=== PATIENT | female | born 1955 | race Caucasian/White ===

== ENCOUNTER 2018-07-16 12:21 | Emergency (ER) | payer BC ==
--- OUTSIDE RECORDS SUMMARY | 2018-07-16 12:47 | XMS REPORT | Continuity of Care Document ---
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 Onset: 2011 Tobacco user Nae Wesley, N.P. Onset: 2011 Anxiety state Nae Wesley, N.PTrinh Onset: 2011 Disturbance in sleep behavior Amalia Lynne MD Onset: 06/02/2014 Malaise and fatigue Amalia Lynne MD Onset: 06/02/2014 Obstructive sleep apnea syndrome Amalia Lynne MD Onset: 07/05/2014 Lumbosacral radiculopathy Faviola Ibanez M.D. Onset: 12/07/2016 Note: left L5/S1 Dyspnea William Lombardo M.D., LAUREN, RICARDO Onset: 01/29/2017 Thoracic aortic ectasia William Lombardo M.D., JUANRICARDO Onset: 01/29/2017 Family History Date Family Member(s) Observation Comments General MGM ?cancer;MGF from complications from accident : (age Father due to Cardiac Atrial Fibrillation 79 Years) Aortic Aneurysm Onset: (age 79 Father Aortic Aneurysm HTN, CAD from Years) AAA Mother CAD Pacemaker, Atrial Fibrillation, Thyroid Cancer, Breast Cancer (60's), Uterine Cancer (70's), Dementia, Dies of a stroke age 90 Siblings 2 1 Brother - CAD - enlarged aorta age 72 1 Sister - CAD - benign tumor of heart Age 70 Social History Type Date Description Comments Sex Unknown Marital Status 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 Device 10: g47.33 (occasionally) Compression knee high stockings 2units Nae Wesley, 04/05/2017 Stockings 20 - 30 mm N.P. Misc Simvastatin Take One Tablet By 30tabs Nae Wesley, 05/24/2016 10mg Mouth AT Bedtime N.P. Tablets Azithromycin take 1 tablet 30 - 4tabs Nae Wesley, 02/06/2012 500mg 60 minutes bfore N.P. Tablets dental appointment Sertraline HCL Take One Tablet By 30tabs Nae Wesley, 12/07/2011 50mg Mouth Every Day N.P. Tablets Caltrate 600+D Plus 1 po bid Unknown [id number] Tablets History Medications Levaquin 1 by mouth daily 10tabs J20.9 Nae Wesley, 12/13/2017 - 500mg Tablets for 10 days N.P. 12/23/2017 Tylenol With Codeine 1 tablet by mouth 30tabs J20.9 Nae Wesley, 2017 - #3 every 8 hours as N.P. 12/27/2017 300-30mg Tablets needed cough Ventolin HFA 1 to 2 18units J20.9 Nae Maryjane, 12/13/2017 - inhalations every N.P. 12/27/2017 108(90Base) mcg/Act 4 hours as needed Aerosol Prednisone 4 tablets by 40tabs Nae Wesley, 12/10/2017 - 10mg Tablets mouth for 4 days N.P. 12/26/2017 3 tablets by mouth for 4 days 2 tablets by mouth for 4 days 1 tablet by mouth for 4 days Fluticasone 2 sprays each 16units J01.90 Nae Wesley, 12/05/2017 - Propionate nostril daily as N.P. 12/19/2017 50mcg/Act needed Suspension Benzonatate one by mouth 30caps J01.90 Nae Maryjane, 12/05/2017 - 200mg three times daily N.P. 12/19/2017 Capsules as needed for cough Azithromycin two tabs day one, 6tabs J01.90 Nae Wesley, 12/05/2017 - 250mg one daily till N.P. 12/13/2017 Tablets gone Gabapentin ( Not Taking) 1 30caps M54.17 Nae Maryjane, 05/27/2017 - 300mg by mouth at N.P. 04/24/2018 Capsules bedtime Medrol 6 by mouth day 1, 21units M54.16 Faviola Ibanez, 12/07/2016 - 4mg TBPK 5 by mouth day 2, M.D. 01/17/2017 4 by mouth day 3, 3 by mouth day 4, 2 by mouth day 5, 1 by mouth day 6 Cyclobenzaprine HCL take 1 by mouth 42tabs M54.16 Faviola Ibanez, 2016 - 5mg every 8 hours, M.D. 05/27/2017 Tablets prn muscle spasm. Prednisone 4 tablets by 40tabs Nae Wesley, 08/25/2015 - 10mg Tablets mouth for 4 days N.P. 09/10/2015 3 tablets by mouth for 4 days 2 tablets by mouth for 4 days 1 tablet by mouth for 4 days Flovent HFA 2 puffs twice 1month 466.0 Nae Wesley, 08/25/2015 - 110mcg/Act daily N.P. 09/24/2015 Aerosol Azithromycin two tabs day one, 6tabs J01.10 Nae Wesley, 08/18/2015 - 250mg one daily till N.P. 08/28/2015 Tablets gone Fluticasone 2 sprays each 16units J01.10 Nae Wesley, 08/18/2015 - Propionate nostril daily as N.P. 08/28/2015 50mcg/Act needed Suspension Nasonex two sprays each 17gm 465.9 Barber Weinstein NP 09/24/2014 - 50mcg/Act nostril once 01/18/2015 Suspension daily prn Azithromycin 2 tabs by mouth 6tabs 381.01 Babrer Weinstein NP 09/24/2014 - 250mg every day x1 day, 09/29/2014 Tablets 1 tab by mouth every day x 4 days Tobrex 1 drop every 4 5ml 372.00 Nae Wesley, 10/12/2013 - 0.3% Solution hours for 7 days N.P. 10/19/2013 Meclizine HCL 1 tablet daily as 30tabs 386.11 Nae Wesley, 06/23/2013 - 25mg needed N.P. 05/19/2014 Tablets Azithromycin two tabs day one, 6tabs 382.9 Nae Wesley, 04/24/2013 - 250mg one daily till N.P. 05/04/2013 Tablets gone Azithromycin two tabs day one, 6tabs Nae Wesley, 12/10/2012 - 250mg one daily till N.P. 12/20/2012 Tablets gone Cyclobenzaprine HCL 1 by mouth at 30tabs 723.1 Nae Wesley, 11/28/2012 - 5mg bedtime as needed N.P. 02/13/2013 Tablets for back pain Oxycodone/Acetaminoph 1-2 tabs po q 4 724.5 Chris Jeter 10/22/2012 - en hrs prn pain Taj Wan 10/22/2012 5-325mg Tablets Oxycodone/Acetaminoph 1 tablet every 6 90tabs 724.5 Chris Jeter 02/18/2012 - en hours as needed Taj Wan 10/22/2012 7.5-500mg Tablets for pain Lidoderm apply to affected 30units 724.5 Nae Wesley, 02/18/2012 - 5% Patches area for 12 hrs, N.P. 11/27/2012 remove for 12 hrs and repeat prn Tobramycin Sulfate 2 gtts in each 5ml 372.00 Nae Maryjane, 01/08/2012 - 0.3% eye every 4 hours N.P. 02/18/2012 Solution while awake for 10 days Prednisone as directed 40tabs 466.0 Nae Maryjane, 12/14/2011 - 5mg Tablets N.P. 12/30/2011 Flovent HFA 2 puffs twice 1month 466.0 Nae Odellliliam, 12/14/2011 - 110mcg/Act daily N.P. 01/13/2012 Aerosol Ventolin HFA 1 to 2 1inhaler 466.0 Nae Odellliliam, 12/14/2011 - inhalations every N.P. 01/13/2012 108(90Base) mcg/ac 4 hours as needed Aerosol Robitussin ac 1 - 2 tsp q 4 hrs 120cc 466.0 Nae Maryjane, 12/14/2011 - prn cough N.P. 12/28/2011 Azithromycin two tabs day one, 6tabs 382.9 Nae Maryjane, 12/07/2011 - 250mg one daily till N.P. 12/14/2011 Tablets gone Escitalopram Oxalate 1 po qd 30tabs 300.00 Nae Maryjane, 12/07/2011 - N.P. 12/07/2011 10mg Tablets Paroxetine HCL 1 po qd 30tabs 300.00 Simran 2011 - 20mg Taj Wild 01/08/2012 Tablets Left Shoe/Boot Size Sprained left 5th 845.13 Simran 2010 - Small/Medium metatarsal Taj Wild 08/04/2010 Aspir-81 1 po qd (Not 100tabs Unknown - 81mg Tablets Taking) 04/24/2018 DR Oakes 1 po qd Unknown - Chondroitin 1500 01/18/2015 Complex 1500Com Capsules Nicoderm CQ once daily Unknown - 21mg/24HR 10/22/2012 Patches 24HR Hydrocodone/Acetamino 1-2 po qid prn 20tabs Unknown - phen 02/13/2013 5-325mg Tablets Cyclobenzaprine HCL one po tid prn 30tabs Chris Jeter - spasm Taj Wan 10/22/2012 10mg Tablets Colace 1 po bid 60caps Unknown - 100mg Capsules 11/17/2012 Famotidine 1 po qd 30tabs Unknown - 40mg Tablets 11/17/2012 Ferrous Gluconate 1 po bid 60tabs Unknown - 11/27/2012 324(37.5Fe) mg Tablets Metoprolol Tartrate 1 po bid 60tabs Unknown - 02/13/2013 25mg Tablets Medications Administered in Office Medication SIG Qnty Indications Ordering Provider Date Technetium TC 99M William Lombardo M.D., 01/21/2017 Tetrofosmin, Per Unit Dose RICARDO AGUILAR Up To 40 Millicuries Injection Technetium TC 99M Clyde Quiroga M.D. 01/21/2015 Tetrofosmin, Per Unit Dose Up To 40 Millicuries Injection Technetium TC 99M BENIGNO Hamm 01/21/2015 Tetrofosmin, Per Unit Dose Up To 40 Millicuries Injection Immunizations CPT Code Status Date Vaccine Lot # [id number] Given 12/10/2008 Tdap - Tetanus/Diptheria/Acellular Pertussis Vital Signs Date Vital Result Comment 06/16/2018 1:45pm Height 61.25 inches 5'1.25" Weight 152.00 lb Heart Rate 69 /min BP Systolic 120 mmHg BP Diastolic 75 mmHg Body Temperature 98.3 F O2 % BldC Oximetry 98 % BMI (Body Mass Index) 28.5 kg/m2 04/25/2018 8:46am Height 61.25 inches 5'1.25" Weight 158.00 lb Heart Rate 68 /min BP Systolic Sitting 108 mmHg lue reg cuff BP Diastolic Sitting 70 mmHg lue reg cuff BP Systolic Standing 110 mmHg lue reg cuff BP Diastolic Standing 70 mmHg lue reg cuff Respiratory Rate 14 /min BMI (Body Mass Index) 29.6 kg/m2 Ejection Fraction 60-65% echo. 04/14/18 12/13/2017 11:38am Height 61.25 inches 5'1.25" Weight 158.00 lb Heart Rate 73 /min BP Systolic 130 mmHg BP Diastolic 80 mmHg Body Temperature 98.6 F O2 % BldC Oximetry 95 % BMI (Body Mass Index) 29.6 kg/m2 12/05/2017 9:54am Height 61.25 inches 5'1.25" Weight 159.00 lb Heart Rate 83 /min BP Systolic 100 mmHg BP Diastolic 66 mmHg Body Temperature 98.5 F O2 % BldC Oximetry 97 % BMI (Body Mass Index) 29.8 kg/m2 05/27/2017 9:28am Height 61.25 inches 5'1.25" Weight 174.50 lb Heart Rate 70 /min BP Systolic 124 mmHg BP Diastolic 80 mmHg Body Temperature 98.2 F O2 % BldC Oximetry 96 % BMI (Body Mass Index) 32.7 kg/m2 01/29/2017 3:01pm Height 60.75 inches 5'0.75" Weight 166.00 lb No shoes Heart Rate 80 /min BP Systolic Sitting 118 mmHg Lue reg cuff BP Diastolic Sitting 76 mmHg Lue reg cuff BP Systolic Standing 122 mmHg Lue reg cuff BP Diastolic Standing 82 mmHg Lue reg cuff Respiratory Rate 16 /min BMI (Body Mass Index) 31.6 kg/m2 Ejection Fraction 60-65% 01/28/2017-echo 01/17/2017 3:52pm Weight 163.44 lb Heart Rate 71 /min BP Systolic Sitting 110 mmHg BP Diastolic Sitting 70 mmHg O2 % BldC Oximetry 95 % 12/07/2016 9:51am Height 60.75 inches 5'0.75" Weight 161.00 lb Heart Rate 72 /min BP Systolic Sitting 110 mmHg BP Diastolic Sitting 68 mmHg Respiratory Rate 16 /min BMI (Body Mass Index) 30.7 kg/m2 08/31/2016 9:57am Height 60.75 inches 5'0.75" Weight 161.00 lb Heart Rate 68 /min BP Systolic Sitting 112 mmHg BP Diastolic Sitting 70 mmHg Respiratory Rate 14 /min BMI (Body Mass Index) 30.7 kg/m2 05/23/2016 8:49am Height 60.75 inches 5'0.75" Weight 164.25 lb Heart Rate 78 /min BP Systolic 130 mmHg BP Diastolic 84 mmHg Body Temperature 98.5 F O2 % BldC Oximetry 99 % BMI (Body Mass Index) 31.3 kg/m2 03/21/2016 10:00am Height 61 inches 5'1" Weight 160.00 lb Heart Rate 68 /min BP Systolic Sitting 132 mmHg BP Diastolic Sitting 72 mmHg Respiratory Rate 14 /min O2 % BldC Oximetry 98 % BMI (Body Mass Index) 30.2 kg/m2 02/14/2016 10:59am Height 61 inches 5'1" Weight 161.00 lb w/o shoes Heart Rate 60 /min BP Systolic Sitting 130 mmHg Rue, reg cuff BP Diastolic Sitting 80 mmHg Rue, reg cuff BP Systolic Standing 126 mmHg Rue BP Diastolic Standing 84 mmHg Rue Respiratory Rate 16 /min BMI (Body Mass Index) 30.4 kg/m2 Ejection Fraction 60-65% as of 01/30/16 echo 12/02/2015 2:31pm Weight 162.00 lb Heart Rate 68 /min BP Systolic Sitting 124 mmHg BP Diastolic Sitting 80 mmHg Respiratory Rate 15 /min Body Temperature 98.3 F O2 % BldC Oximetry 98 % 08/18/2015 11:02am Weight 162.00 lb Heart Rate 78 /min BP Systolic Sitting 120 mmHg BP Diastolic Sitting 76 mmHg Body Temperature 97.8 F O2 % BldC Oximetry 98 % 08/08/2015 4:43pm Weight 163.00 lb Heart Rate 70 /min BP Systolic Sitting 126 mmHg BP Diastolic Sitting 70 mmHg Body Temperature 98.8 F O2 % BldC Oximetry 97 % 05/23/2015 9:15am Height 61.25 inches 5'1.25" Weight 165.00 lb Heart Rate 66 /min BP Systolic Sitting 118 mmHg BP Diastolic Sitting 78 mmHg Respiratory Rate 15 /min Body Temperature 98.2 F O2 % BldC Oximetry 98 % BMI (Body Mass Index) 30.9 kg/m2 03/16/2015 10:53am Height 61.25 inches 5'1.25" Weight 165.00 lb Heart Rate 70 /min BP Systolic 100 mmHg BP Diastolic 68 mmHg Respiratory Rate 14 /min O2 % BldC Oximetry 98 % BMI (Body Mass Index) 30.9 kg/m2 01/25/2015 1:59pm Height 61.25 inches 5'1.25" Weight 166.00 lb Heart Rate 60 /min BP Systolic Sitting 112 mmHg Ra reg cuff BP Diastolic Sitting 78 mmHg Ra reg cuff BP Systolic Standing 108 mmHg Ra BP Diastolic Standing 74 mmHg Ra Respiratory Rate 16 /min BMI (Body Mass Index) 31.1 kg/m2 Ejection Fraction 60-65% 12/28/14 01/05/2015 8:24am Height 61.25 inches 5'1.25" Weight 165.00 lb w/o shoes Heart Rate 68 /min reg BP Systolic Sitting 108 mmHg Rue, reg cuff BP Diastolic Sitting 70 mmHg Rue, reg cuff BP Systolic Standing 110 mmHg Rue BP Diastolic Standing 76 mmHg Rue Respiratory Rate 18 /min BMI (Body Mass Index) 30.9 kg/m2 Ejection Fraction 60-65% as of 12/28/14 echo 09/24/2014 10:47am Heart Rate 62 /min BP Systolic Sitting 117 mmHg BP Diastolic Sitting 77 mmHg Body Temperature 97.2 F 09/13/2014 1:41pm Height 61 inches 5'1" Weight 160.00 lb Heart Rate 72 /min BP Systolic 118 mmHg BP Diastolic 68 mmHg Respiratory Rate 12 /min O2 % BldC Oximetry 97 % BMI (Body Mass Index) 30.2 kg/m2 07/05/2014 9:31am Height 61 inches 5'1" Weight 160.00 lb Heart Rate 72 /min BP Systolic Sitting 124 mmHg BP Diastolic Sitting 64 mmHg O2 % BldC Oximetry 97 % BMI (Body Mass Index) 30.2 kg/m2 06/02/2014 8:38am Height 61 inches 5'1" Weight 160.50 lb Heart Rate 71 /min BP Systolic Sitting 124 mmHg BP Diastolic Sitting 68 mmHg Respiratory Rate 18 /min O2 % BldC Oximetry 98 % BMI (Body Mass Index) 30.3 kg/m2 Neck Circumference in inches 14.5 05/19/2014 10:41am Height 61.25 inches 5'1.25" Weight 160.00 lb Heart Rate 66 /min BP Systolic 131 mmHg BP Diastolic 76 mmHg Body Temperature 99.3 F BMI (Body Mass Index) 30.0 kg/m2 12/23/2013 10:34am Height 61.25 inches 5'1.25" Weight 164.25 lb Heart Rate 66 /min reg BP Systolic Sitting 120 mmHg LA reg cuff BP Diastolic Sitting 80 mmHg LA reg cuff BP Systolic Standing 108 mmHg LA reg cuff BP Diastolic Standing 80 mmHg LA reg cuff BMI (Body Mass Index) 30.8 kg/m2 10/12/2013 11:23am Height 61.25 inches 5'1.25" Weight 164.50 lb Heart Rate 74 /min BP Systolic Sitting 116 mmHg BP Diastolic Sitting 64 mmHg Body Temperature 98.0 F BMI (Body Mass Index) 30.8 kg/m2 06/23/2013 2:46pm Weight 164.50 lb Heart Rate 78 /min BP Systolic Sitting 118 mmHg BP Diastolic Sitting 64 mmHg Body Temperature 97.7 F 04/24/2013 4:24pm Weight 161.50 lb Heart Rate 84 /min BP Systolic 136 mmHg BP Diastolic 82 mmHg Respiratory Rate 18 /min Body Temperature 98.2 F 02/13/2013 8:54am Weight 159.50 lb Heart Rate 72 /min BP Systolic Sitting 120 mmHg BP Diastolic Sitting 76 mmHg 11/28/2012 8:54am Weight 150.00 lb Heart Rate 64 /min BP Systolic Sitting 120 mmHg BP Diastolic Sitting 70 mmHg 11/27/2012 9:21am Height 61.25 inches 5'1.25" Weight 150.00 lb without shoes Heart Rate 6260 /min sit and stand HR reg BP Systolic Sitting 110 mmHg L arm reg cuff BP Diastolic Sitting 80 mmHg L arm reg cuff BP Systolic Standing 108 mmHg L arm reg cuff BP Diastolic Standing 80 mmHg L arm reg cuff Respiratory Rate 16 /min BMI (Body Mass Index) 28.1 kg/m2 10/22/2012 1:18pm Weight 148.00 lb Heart Rate 72 /min BP Systolic Sitting 112 mmHg BP Diastolic Sitting 70 mmHg 06/13/2012 8:56am Weight 156.00 lb Heart Rate 74 /min BP Systolic Sitting 122 mmHg BP Diastolic Sitting 76 mmHg 02/18/2012 3:15pm Height 61 inches 5'1" Weight 150.00 lb Heart Rate 72 /min BP Systolic 124 mmHg BP Diastolic 78 mmHg Respiratory Rate 16 /min BMI (Body Mass Index) 28.3 kg/m2 01/08/2012 8:39am Height 61 inches 5'1" Weight 150.00 lb Heart Rate 64 /min BP Systolic Sitting 118 mmHg BP Diastolic Sitting 82 mmHg BMI (Body Mass Index) 28.3 kg/m2 12/14/2011 8:57am Height 61 inches 5'1" Weight 151.00 lb Heart Rate 72 /min BP Systolic Sitting 118 mmHg BP Diastolic Sitting 66 mmHg Body Temperature 99.1 F BMI (Body Mass Index) 28.5 kg/m2 12/07/2011 10:15am Height 61 inches 5'1" Weight 152.00 lb Heart Rate 70 /min BP Systolic Sitting 122 mmHg BP Diastolic Sitting 70 mmHg Body Temperature 99.2 F BMI (Body Mass Index) 28.7 kg/m2 09/03/2011 11:14am Height 61 inches 5'1" Weight 150.00 lb Heart Rate 72 /min BP Systolic Sitting 112 mmHg BP Diastolic Sitting 66 mmHg BMI (Body Mass Index) 28.3 kg/m2 2011 9:14am Height 61 inches 5'1" Weight 150.00 lb Heart Rate 64 /min BP Systolic Sitting 112 mmHg BP Diastolic Sitting 70 mmHg BMI (Body Mass Index) 28.3 kg/m2 2010 10:14am Height 61 inches 5'1" Weight 149.00 lb Heart Rate 68 /min BP Systolic 120 mmHg BP Diastolic 78 mmHg BMI (Body Mass Index) 28.2 kg/m2 Results Test Date Facility Test Result H/L Range Note Laboratory test 05/27/2017 [facility] Cytology SEE RESULT [address] [place] [address] [phone] Comp Metabolic 05/13/2017 [facility] Sodium 138 mmol/L N 133- [address] [place] [address] [phone] Potassium 4.6 mmol/L N 3.5-5.0 Chloride 104 mmol/L N 101-111 Co2 Carbon Dioxide 28 mmol/L N 22-32 Anion Gap 6 mmol/L N 2-11 Glucose 104 mg/dL High 70-100 Blood Urea Nitrogen 20 mg/dL N 6-24 Creatinine 0.86 mg/dL N 0.51-0.95 BUN/Creatinine Ratio 23.3 High 8-20 Calcium 9.9 mg/dL N 8.6-10.3 Total Protein 6.7 g/dL N 6.4-8.9 Albumin 4.4 g/dL N 3.2-5.2 Globulin 2.3 g/dL N 2-4 Albumin/Globulin Ratio 1.9 N 1-3 Total Bilirubin 0.30 mg/dL N 0.2-1.0 Alkaline Phosphatase 70 U/L N 34-104 Alt 30 U/L N 7-52 Ast 25 U/L N 13-39 Egfr Non- 67.5 >60 Egfr 86.9 >60 2 Lipid Profile 05/13/2017 [facility] Triglycerides 102 mg/dL 3 (Trig/Chol/HDL) [address] [place] [address] [phone] Cholesterol 176 mg/dL 4 HDL Cholesterol 65.2 mg/dL 5 LDL Cholesterol 90 mg/dL 6 Lipid Profile 07/19/2016 [facility] Triglycerides 85 mg/dL N 7 (Trig/Chol/HDL) [address] [place] [address] [phone] Cholesterol 162 mg/dL N 8 HDL Cholesterol 62.4 mg/dL N 9 LDL Cholesterol 83 mg/dL N 10 Liver Function 07/19/2016 [facility] Total Protein 6.7 g/dL N 6.4-8.[address] [place] [address] [phone] Albumin 4.3 g/dL N 3.2-5.2 Globulin 2.4 g/dL N 2-4 Albumin/Globulin Ratio 1.8 N 1-3 Total Bilirubin 0.40 mg/dL N 0.2-1.0 Direct Bilirubin 0.10 mg/dL N 0.03-0.18 Indirect Bilirubin 0.3 mg/dL N 0.3-1.0 Alkaline Phosphatase 64 U/L N 34-104 Alt 35 U/L N 7-52 Ast 26 U/L N 13-39 Laboratory test 05/15/2016 [facility] Vitamin D 40.7 ng/mL N 30-[address] Total 25(Oh) [place] [address] [phone] Comp Metabolic 05/15/2016 [facility] Sodium 137 mmol/L N 133- [address] [place] [address] [phone] Potassium 4.2 mmol/L N 3.5-5.0 Chloride 104 mmol/L N 101-111 Co2 Carbon Dioxide 26 mmol/L N 22-32 Anion Gap 7 mmol/L N 2-11 Glucose 103 mg/dL High 70-100 Blood Urea Nitrogen 18 mg/dL N 6-24 Creatinine 0.72 mg/dL N 0.51-0.95 BUN/Creatinine Ratio 25.0 High 8-20 Calcium 9.6 mg/dL N 8.6-10.3 Total Protein 6.9 g/dL N 6.4-8.9 Albumin 4.4 g/dL N 3.2-5.2 Globulin 2.5 g/dL N 2-4 Albumin/Globulin Ratio 1.8 N 1-3 Total Bilirubin 0.50 mg/dL N 0.2-1.0 Alkaline Phosphatase 70 U/L N 34-104 Alt 32 U/L N 7-52 Ast 20 U/L N 13-39 Egfr Non- 83.2 N >60 Egfr 107.0 N >60 12 Lipid Profile 05/15/2016 [facility] Triglycerides 131 mg/dL N 13 (Trig/Chol/HDL) [address] [place] [address] [phone] Cholesterol 232 mg/dL N 14 HDL Cholesterol 75.3 mg/dL N 15 LDL Cholesterol 131 mg/dL N 16 Lipid Profile 05/31/2015 [facility] Triglycerides 148 mg/dL N 17 (Trig/Chol/HDL) [address] [place] [address] [phone] Cholesterol 218 mg/dL N 18 HDL Cholesterol 56.5 mg/dL N 19 LDL Cholesterol 132 mg/dL N 20 Comp Metabolic Panel 05/31/2015 [facility] Sodium 139 mmol/L N 133-[address] [place] [address] [phone] Potassium 4.2 mmol/L N 3.5-5.0 Chloride 105 mmol/L N 101-111 Co2 Carbon Dioxide 26 mmol/L N 22-32 Anion Gap 8 mmol/L N 2-11 Glucose 93 mg/dL N 70-100 Blood Urea Nitrogen 13 mg/dL N 6-24 Creatinine 0.73 mg/dL N 0.51-0.95 BUN/Creatinine Ratio 17.8 N 8-20 Calcium 9.6 mg/dL N 8.6-10.3 Total Protein 6.7 g/dL N 6.4-8.9 Albumin 4.4 g/dL N 3.2-5.2 Globulin 2.3 g/dL N 2-4 Albumin/Globulin Ratio 1.9 N 1-3 Total Bilirubin 0.50 mg/dL N 0.2-1.0 Alkaline Phosphatase 64 U/L N 34-104 Alt 28 U/L N 7-52 Ast 20 U/L N 13-39 Egfr Non- 82.2 N >60 Egfr 105.7 N >60 21 Laboratory test 05/19/2014 [facility] Cytology RUN DATE: finding [address] <SEE NOTE> [place] [address] [phone] HPV Rna W/ Reflex Genotype Negative N Negative 23 Lipid Profile 04/29/2014 [facility] Triglycerides 90 mg/dL N 24, 25 (Trig/Chol/HDL) [address] [place] [address] [phone] Cholesterol 199 mg/dL N 26 HDL Cholesterol 57.8 mg/dL N 27 LDL Cholesterol 123 mg/dL N 28 Comp Metabolic Panel 04/29/2014 [facility] Sodium 139 mmol/L N 133-145 [address] [place] [address] [phone] Potassium 4.5 mmol/L N 3.5-5.0 Chloride 105 mmol/L N 101-111 Co2 Carbon Dioxide 30 mmol/L N 22-32 Anion Gap 4 mmol/L N 2-11 Glucose 89 mg/dL N 70-100 Blood Urea Nitrogen 15 mg/dL N 6-24 Creatinine 0.77 mg/dL N 0.51-0.95 BUN/Creatinine Ratio 19.5 N 8-20 Calcium 9.5 mg/dL N 8.6-10.3 Total Protein 6.5 g/dL N 6.4-8.9 Albumin 4.3 g/dL N 3.2-5.2 Globulin 2.2 g/dL N 2-4 Albumin/Globulin Ratio 2.0 N 1-3 Total Bilirubin 0.40 mg/dL N 0.2-1.0 Alkaline Phosphatase 54 U/L N 34-104 Alt 19 U/L N 7-52 Ast 16 U/L N 13-39 Egfr Non- 77.5 N >60 Egfr 99.7 N >60 29 Inr/Protime 08/02/2012 [facility] Inr 0.96 0.87-0.97 [address] [place] [address] [phone] CBC Auto Diff 08/02/2012 [facility] White Blood 10.4 4.8- 10.[address] Count 10^3/[place] [address] [phone] Red Blood Count 4.57 10^6/uL 4.0-5.4 Hemoglobin 14.3 g/dL 12.0-16.0 Hematocrit 42 % 35-47 Mean Corpuscular Volume 93 fL 80-97 Mean Corpuscular Hemoglobin 31 pg 27-31 Mean Corpuscular HGB Conc 34 g/dL 31-36 Red Cell Distribution Width 14 % 10.5-15 Platelet Count 248 10^3/uL 150-450 Mean Platelet Volume 9 um3 7.4-10.4 Abs Neutrophils 7.5 10^3/uL 1.5-7.7 Abs Lymphocytes 2.1 10^3/uL 1.0-4.8 Abs Monocytes 0.8 10^3/uL 0-0.8 Abs Eosinophils 0.1 10^3/uL 0-0.6 Abs Basophils 0 10^3/uL 0-0.2 Abs Nucleated RBC 0.01 10^3/uL Granulocyte % 71.9 % 38-83 Lymphocyte % 19.8 % Low 25-47 Monocyte % 7.4 % 1-9 Eosinophil % 0.5 % 0-6 Basophil % 0.4 % 0-2 Nucleated Red Blood Cells % 0.1 Laboratory 08/02/2012 [facility] Activated 37.2 High 22.18- 37.18 test finding [address] [place] [address] Thrombo Time [phone] Comp Metabolic 08/02/2012 [facility] Sodium 137 mmol/L 133- [address] [place] [address] [phone] Potassium 5.3 mmol/L High 3.5-5.0 Chloride 105 mmol/L 101-111 Co2 Carbon Dioxide 23.0 mmol/L 22-32 Anion Gap 9.0 mmol/L 2-11 Glucose 83 mg/dL 70-100 Blood Urea Nitrogen 11 mg/dL 6-24 Creatinine 0.70 mg/dL 0.50-1.40 BUN/Creatinine Ratio 15.7 8-20 Calcium 9.8 mg/dL 8.1-9.9 Total Protein 6.6 g/dL 6.2-8.1 Albumin 4.7 g/dL 3.6-5.4 Globulin 1.9 g/dL Low 2-4 Albumin/Globulin Ratio 2.5 1-3 Total Bilirubin 1.4 mg/dL 0.4-1.5 Alkaline Phosphatase 58 U/L 30-110 Alt 32 U/L 14-54 Ast 41 U/L 12-42 Egfr Non- 87.2 >60 Egfr 112.1 >60 30 CKMB 08/02/2012 [facility] CKMB ng/mL 2.2 ng/mL 0.3-4.0 31 [address] [place] [address] [phone] Laboratory test 08/02/2012 [facility] Troponin I 0 ng/mL 0- 0.06 32 finding [address] [place] [address] [phone] Laboratory test 03/14/2012 [facility] Inr 0.96 0.82-1.[address] [place] [address] [phone] Activated Partial Thrombo Time 33.6 sec 22.18-37.18 34 Type & Screen 03/14/2012 [facility] Patient Blood Type A Negative [address] [place] [address] [phone] Antibody Screen NEGATIVE Basic Metabolic Panel 03/14/2012 [facility] Sodium 138 mmol/L 133-[address] [place] [phone] Potassium 4.1 mmol/L 3.5-5.0 Chloride 102 mmol/L 101-111 Co2 Carbon Dioxide 29.0 mmol/L 22-32 Anion Gap 7.0 mmol/L 2-11 Glucose 85 mg/dL 70-100 Blood Urea Nitrogen 8 mg/dL 6-24 Creatinine 0.60 mg/dL 0.50-1.40 BUN/Creatinine Ratio 13.3 8-20 Calcium 10.2 mg/dL High 8.1-9.9 Egfr Non- 104.2 >60 Egfr 134.0 >60 35 CBC Auto Diff 03/14/2012 [facility] White Blood 6.3 10^3/uL 4.8-10.8 [address] [facility] [place] [address] [phone] Red Blood Count 4.56 10^6/uL 4.0-5.4 Hemoglobin 14.5 g/dL 12.0-16.0 Hematocrit 42 % 35-47 Mean Corpuscular Volume 93 fL 80-97 Mean Corpuscular Hemoglobin 32 pg High 27-31 Mean Corpuscular HGB Conc 34 g/dL 31-36 Red Cell Distribution Width 13 % 10.5-15 Platelet Count 291 10^3/uL 150-450 Mean Platelet Volume 8 um3 7.4-10.4 Abs Neutrophils 3.7 10^3/uL 1.5-7.7 Abs Lymphocytes 1.9 10^3/uL 1.0-4.8 Abs Monocytes 0.5 10^3/uL 0-0.8 Abs Eosinophils 0.1 10^3/uL 0-0.6 Abs Basophils 0.1 10^3/uL 0-0.2 Abs Nucleated RBC 0 10^3/uL Granulocyte % 58.7 % 38-83 Lymphocyte % 30.8 % 25-47 Monocyte % 8.5 % 1-9 Eosinophil % 1.1 % 0-6 Basophil % 0.9 % 0-2 Nucleated Red Blood Cells % 0 Laboratory test 08/06/2011 [facility] TSH 1.03 MIU/ML 0.34- 5.60 finding [address] [place] [address] [phone] Comp Metabolic 08/06/2011 [facility] Sodium 136 mmol/L 135- 145 Panel [address] [place] [address] [phone] Potassium 4.3 mmol/L 3.5-5.0 Chloride 104 mmol/L 101-111 Co2 (Carbon Dioxide) 28.0 mmol/L 22-32 Anion Gap 4.0 mmol/L 2-11 36 Glucose 99 mg/dL 70-100 BUN 11 mg/dL 6-24 Creatinine 0.8 mg/dL 0.50-1.40 One Over Creatinine 1.25 BUN/Creatinine Ratio 13.8 8-20 Calcium 9.2 mg/dL 8.1-9.9 Total Protein 6.4 GM/DL 6.2-8.1 Albumin 4.2 GM/DL 3.6-5.4 Globulin 2.2 GM/DL 2-4 Albumin/Globulin Ratio 1.9 1-3 Bilirubin Total 0.7 mg/dL 0.4-1.5 37 Alkaline Phosphatase 60 U/L 30-110 Alt (SGPT) 29 U/L 14-54 Ast (Sgot) 24 U/L 12-42 eGFR Non- 74.7 > 60 eGFR 96.1 > 60 38 Lipid Profile 08/06/2011 [facility] Triglyceride 45 mg/dL 40- 200 (Trig/Chol/HDL) [address] [place] [address] [phone] Cholesterol 197 mg/dL Less Than 200 39 High Density Lipoprotein 75 mg/dL High 40-60 40 Cholesterol/HDL Ratio 2.63 AVERAGE 1-4.44 Low Density Lipoprotein 113 mg/dL High Less Than 100 41 Laboratory test 2011 [facility] Cytology [address] <SEE NOTE> [place] [address] [phone] CBC No Diff 09/20/2010 [facility] White Blood 6.7 CUMM 4.8- [address] Count 10.8 [place] [address] [phone] Red Cell Count 4.37 CUMM 4.2-5.4 Hemoglobin 14.3 g/dL 12.0-16.0 Hematocrit 41 % 35-47 Mean Corpuscular Volume 94 um3 79-97 Mean Corpuscular Hemoglob 33 pg High 27-31 Mean Corpuscular HGB Cone 35 g/dL 32-36 Redcell Distribution WDTH 13 % 10.5-15 Platelet Count 260 CUMM 150-450 Mean Platelet Volume 9.4 um3 7.4-10.4 Basic Metabolic Panel 09/20/2010 [facility] Sodium 142 mmol/L 135-[address] [place] [address] [phone] Potassium 4.7 mmol/L 3.5-5.0 Chloride 106 mmol/L 101-111 Co2 (Carbon Dioxide) 29.0 mmol/L 22-32 Anion Gap 7.0 mmol/L 2-11 43 Glucose 89 mg/dL 70-100 BUN 8 mg/dL 6-24 Creatinine 0.70 mg/dL 0.50-1.40 One Over Creatinine 1.40 BUN/Creatinine Ratio 11.4 8-20 Calcium 9.8 mg/dL 8.1-9.9 eGFR Non- 87.5 > 60 eGFR 112.6 > 60 44 Laboratory test 09/20/2010 [facility] Magnesium 2.2 mg/dL 1.7 -2.[address] [place] [address] [phone] TSH 0.95 MIU/ML 0.34-5.60 1 SEE RESULT BELOW Name: NOLAN PEOPLES : [address]: Nae Wesley NP Acct: [id number] Unit: [id number] AGE: 61 Location: [facility] Re05/27/17 SEX: F Status: REG REF SPEC: LOYDA: 05/27/17 [facility] [address]: Nae Wesley NP REQ: [id number] RECD: 05/27/17 STATUS: SOUT _ ORDERED: TP IMAGE ANAL, HPV/Thin Prep, HPV 16/18 GENE COMMENTS: [id number] Negative for Intraepithelial lesion or Malignancy A. Ectocervical/Endocervical Specimen Adequacy: Satisfactory of evaluation Transformation zone component cannot be definitely identified due to presence of atrophy or other hormonal changes Predominance of white blood cells Scanty epithelial component Patient Information: HPV: High risk HPV RNA testing regardless of pap results. HPV 16/18 Genotype Reflex Actual Specimen Date: 05/27/17 LMP If Unknown: age 50+/- Spec Date if unknown: 05/2014 ?: N Post Menopausal?: Y Hysterectomy?: N Previous Abnormal Pap Smears?:N Date Time Test Result Flag (u) Normal Range 05/27/17 1159 @ HPV RNA RFLX GE Negative Negative @ @ The high-risk HPV types detected by the assay include: 16, @ 18, 31, 33, 35, 39, 45, 51, 52, 56, 58, 59, 66, and 68. Signed (signature on file) HEMANT Díaz (ASCP) 05/28 1418 This Pap test was evaluated with the assistance of the Gnodal Test Imaging System. Due to cytologic findings at the logger driving horses microscope, comprehensive manual rescreening by a Grinder Set Up Operator Thread may be required. The Pap Smear is a screening test designed to aid in the detection of premalignant and malignant conditions of the uterine cervix. It is not a diagnostic procedure and should not be used as the sole means of detecting cervical cancer. Both false- positive and false- negative reports do occur. Depending on your risk status, a Pap smear should be obtained and evaluated every 1-3 years. END OF REPORT DEPARTMENT OF PATHOLOGY, [address] [place] [address] Michael Wood M.D. Director [facility] # [id number] 2 Because ethnic data is not always readily available, this report includes an eGFR for both -Americans and non- Americans. The National Kidney Disease Education Program (NKDEP) does not endorse the use of the MDRD equation for patients that are not between the ages of 18 and 70, are , have extremes of body size, muscle mass, or nutritional status, or are non- or non-. According to the National Kidney Foundation, irrespective of diagnosis, the stage of the disease is based on the level of kidney function: Stage Description GFR(mL/min/1.73 m(2)) 1 Kidney damage with normal or decreased GFR 90 2 Kidney damage with mild decrease in GFR 60-89 3 Moderate decrease in GFR 30-59 4 Severe decrease in GFR 15-29 5 Kidney failure <15 (or dialysis) 3 Desirable: <150 Borderline High: 150-199 High: 200-499 Very High: >500 4 Desirable: <200 Borderline High: 200-239 High: >239 5 Low: <40 Desirable: 40-60 High: >60 6 Desirable: <100 Near Optimal: 100-129 Borderline High: 130-159 High: 160-189 Very High: >189 7 Desirable <150 Borderline high 150-199 High 200-499 Very High >500 8 Desirable <200 Borderline high 200-239 High >239 9 Low <40 Desirable: 40-60 High: >60 10 Desirable: <100 mg/dL Near Optimal: 100-129 mg/dL Borderline High: 130-159 mg/dL High: 160-189 mg/dL Very High: >189 mg/dL 11 FASTING 10 HOUR 12 Because ethnic data is not always readily available, this report includes an eGFR for both -Americans and non- Americans. The National Kidney Disease Education Program (NKDEP) does not endorse the use of the MDRD equation for patients that are not between the ages of 18 and 70, are , have extremes of body size, muscle mass, or nutritional status, or are non- or non-. According to the National Kidney Foundation, irrespective of diagnosis, the stage of the disease is based on the level of kidney function: Stage Description GFR(mL/min/1.73 m(2)) 1 Kidney damage with normal or decreased GFR 90 2 Kidney damage with mild decrease in GFR 60-89 3 Moderate decrease in GFR 30-59 4 Severe decrease in GFR 15-29 5 Kidney failure <15 (or dialysis) 13 Desirable <150 Borderline high 150-199 High 200-499 Very High >500 14 Desirable <200 Borderline high 200-239 High >239 15 Low <40 Desirable: 40-60 High: >60 16 Desirable: <100 mg/dL Near Optimal: 100-129 mg/dL Borderline High: 130-159 mg/dL High: 160-189 mg/dL Very High: >189 mg/dL 17 Desirable <150 Borderline high 150-199 High 200-499 Very High >500 18 Desirable <200 Borderline high 200-239 High >239 19 Low <40 Desirable: 40-60 High: >60 20 Desirable: <100 mg/dL Near Optimal: 100-129 mg/dL Borderline High: 130-159 mg/dL High: 160-189 mg/dL Very High: >189 mg/dL 21 Because ethnic data is not always readily available, this report includes an eGFR for both -Americans and non- Americans. The National Kidney Disease Education Program (NKDEP) does not endorse the use of the MDRD equation for patients that are not between the ages of 18 and 70, are , have extremes of body size, muscle mass, or nutritional status, or are non- or non-. According to the National Kidney Foundation, irrespective of diagnosis, the stage of the disease is based on the level of kidney function: Stage Description GFR(mL/min/1.73 m(2)) 1 Kidney damage with normal or decreased GFR 90 2 Kidney damage with mild decrease in GFR 60-89 3 Moderate decrease in GFR 30-59 4 Severe decrease in GFR 15-29 5 Kidney failure <15 (or dialysis) 22 RUN DATE: 05/20/14 [facility] LAB LIVE PAGE 1 RUN TIME: [address] [place] [id number] Specimen Inquiry Name: NOLAN PEOPLES : [address]: Nae Wesley NP Acct: [id number] Unit: [id number] AGE: 58 Location: [facility] Re05/19/14 SEX: F Status: REG REF SPEC: [id number] LOYDA: 05/19/[address]: Nae Wesley NP REQ: [id number] RECD: 05/19/14 STATUS: SOUT _ ORDERED: IMAGE ANALYSIS, HPV/Thin Prep, HPV 16/18 GENE FINAL DIAGNOSIS Negative for Intraepithelial lesion or Malignancy A. Ectocervical/Endocervical Specimen Adequacy: Satisfactory of evaluation Transformation zone component identified Patient Information: HPV: High risk HPV RNA testing regardless of pap results. HPV 16/18 Genotype for HPV pos Actual Specimen Date: 05/19/14 LMP If Unknown: unknown ?: N Post Menopausal?: Y Hysterectomy?: N Previous Abnormal Pap Smears?:N Date Time Test Result Flag (u) Normal Range 05/19/14 1130 HPV RNA RFLX GE Negative Negative The high-risk HPV types detected by the assay include: 16, 18, 31, 33, 35, 39, 45, 51, 52, 56, 58, 59, 66, and 68. Signed (signature on file) Mikey GonzalezHEMANT(ASCP) 1441 This Pap test was evaluated with the assistance of the Poshlyp Test Imaging System. Due to cytologic findings at the logger driving horses microscope, comprehensive manual rescreening by a Grinder Set Up Operator Thread may be required. The Pap Smear is a screening test designed to aid in the detection of premalignant and malignant conditions of the uterine cervix. It is not a diagnostic procedure and should not be used as the sole means of detecting cervical cancer. Both false- positive and false- negative reports do occur. Depending on your risk status, a Pap smear should be obtained and evaluated every 1-3 years. END OF REPORT * ML=Testing performed at Main Lab DEPARTMENT OF PATHOLOGY, [address] [place] [address] Michael Wood M.D. Director [facility] # [id number] 23 The high-risk HPV types detected by the assay include: 16, 18, 31, 33, 35, 39, 45, 51, 52, 56, 58, 59, 66, and 68. 24 FASTING 10 HOUR 25 Desirable <150 Borderline high 150-199 High 200-499 Very High >500 26 Desirable <200 Borderline high 200-239 High >239 27 Low <40 Desirable: 40-60 High: >60 28 Desirable: <100 mg/dL Near Optimal: 100-129 mg/dL Borderline High: 130-159 mg/dL High: 160-189 mg/dL Very High: >189 mg/dL 29 Because ethnic data is not always readily available, this report includes an eGFR for both -Americans and non- Americans. The National Kidney Disease Education Program (NKDEP) does not endorse the use of the MDRD equation for patients that are not between the ages of 18 and 70, are , have extremes of body size, muscle mass, or nutritional status, or are non- or non-. According to the National Kidney Foundation, irrespective of diagnosis, the stage of the disease is based on the level of kidney function: Stage Description GFR(mL/min/1.73 m(2)) 1 Kidney damage with normal or decreased GFR 90 2 Kidney damage with mild decrease in GFR 60-89 3 Moderate decrease in GFR 30-59 4 Severe decrease in GFR 15-29 5 Kidney failure <15 (or dialysis) 30 Because ethnic data is not always readily available, this report includes an eGFR for both -Americans and non- Americans. The National Kidney Disease Education Program (NKDEP) does not endorse the use of the MDRD equation for patients that are not between the ages of 18 and 70, are , have extremes of body size, muscle mass, or nutritional status, or are non- or non-. According to the National Kidney Foundation, irrespective of diagnosis, the stage of the disease is based on the level of kidney function: Stage Description GFR(mL/min/1.73 m(2)) 1 Kidney damage with normal or decreased GFR 90 2 Kidney damage with mild decrease in GFR 60-89 3 Moderate decrease in GFR 30-59 4 Severe decrease in GFR 15-29 5 Kidney failure <15 (or dialysis) 31 CKMB interpretation should be made in conjunction with clinical symptoms, patient history and EKG changes. 32 Reference Range and Interpretation: TnI (ng/mL) Interpretation Less Than 0.06 ng/mL Not supportive of diagnosis of [place] 0.06 - 0.50 ng/mL Indeterminate: suggest serial studies if clinically indicated. Greater than 0.5 ng/mL Consistent with diagnosis of [place] 33 The INR(International Normalized Ratio) was adopted by the World Health Organization (WHO) in 1983 as a standardized system of reporting PT (Prothrombin Time). The Centers for Disease Control (CDC) states that reporting of PT results in INR only is the preferred method. Recommended INR for Patients on Oral Anticoagulants Prophylaxis 2.0 - 3.0 Treatment of thrombosis 2.0 - 3.0 Prevention of embolism 2.0 - 3.0 Prevention of embolism from prosthetic heart valves 2.5 - 3.5 34 SDS 03/21 35 Because ethnic data is not always readily available, this report includes an eGFR for both -Americans and non- Americans. The National Kidney Disease Education Program (NKDEP) does not endorse the use of the MDRD equation for patients that are not between the ages of 18 and 70, are , have extremes of body size, muscle mass, or nutritional status, or are non- or non-. According to the National Kidney Foundation, irrespective of diagnosis, the stage of the disease is based on the level of kidney function: Stage Description GFR(mL/min/1.73 m(2)) 1 Kidney damage with normal or decreased GFR 90 2 Kidney damage with mild decrease in GFR 60-89 3 Moderate decrease in GFR 30-59 4 Severe decrease in GFR 15-29 5 Kidney failure <15 (or dialysis) 36 Anion gap measurement may be of limited value in the presence of any alkalosis, especially in a combined acid base disorder. . 37 A metabolite of Naproxen, O-desmethylnaproxen, has been shown to interfere with the [place] method for measuring total bilirubin. Samples from patients who have taken Naproxen have shown spurious elevation in total bilirubin levels. 38 Because ethnic data is not always readily available, this report includes an eGFR for both -Americans and non- Americans. The National Kidney Disease Education Program (NKDEP) does not endorse the use of the MDRD equation for patients that are not between the ages of 18 and 70, are , have extremes of body size, muscle mass, or nutritional status, or are non- or non-. According to the National Kidney Foundation, irrespective of diagnosis, the stage of the disease is based on the level of kidney function: Stage Description GFR(mL/min/1.73 m(2)) 1 Kidney damage with normal or decreased GFR 90 2 Kidney damage with mild decrease in GFR 60-89 3 Moderate decrease in GFR 30-59 4 Severe decrease in GFR 15-29 5 Kidney failure <15 (or dialysis) 39 CHOLESTEROL INTERPRETATION: Desirable: Less than 200 MG/DL Borderline-High Risk: 200-239 MG/DL High-Risk: 240 MG/DL and over 40 HDL INTERPRETATION: Undesirable: High Risk: Less than 40 MG/DL Desirable: Low Risk: Greater than 60 MG/DL 41 LDL INTERPRETATION: Low Risk Optimal Level: LDL Less than 100 MG/DL Near or Above Optimal: LDL 100-129 MG/DL Borderline High Risk: LDL 130-159 MG/DL High Risk: LDL 160-189 MG/DL Very High Risk: LDL Greater than 189 MG/DL 42 ---- RUN DATE: 08/06/11 [facility] NMI LIVE PAGE 1 RUN TIME: 1236 Specimen Inquiry RUN USER: INTERFACE -- Name: NOLAN PEOPLES Status: REG REF Re08/03/11 Age/Sex: 55/F Unit#: [id number] Location: [facility] : [birth year] -- Specimen: [id number] SOUT Spec Date:08/03/11-[address]: Nae Wesley [facility] Spec Type: CYTOLOGY Received:08/06/11-3689 Copies to: SOURCE ECTOCERVICAL/ENDOCERVICAL Thin Prep with Reflex HPV Test PATIENT INFORMATION ACTUAL COLLECTION DATE: 08/03/11 ? No POST MENOPAUSAL? No HYSTERECTOMY? No PREVIOUS ABNORMAL PAP SMEARS No PATIENT HISTORY: Last menstrual period- age 42 ADEQUACY OF SPECIMEN Satisfactory for evaluation * Transformation zone component cannot be definitely identified due to prese nce * of atrophy or other hormonal changes. * DIAGNOSIS NEGATIVE FOR INTRAEPITHELIAL LESION OR MALIGNANCY * This Pap test was evaluated with the assistance of the [employer] Self Representation Document PreparationPrep Pap Test Imaging System. The Pap Smear is a screening test designed to aid in the detection of premalign ant and malignant conditions of the uterine cervix. It is not a diagnostic procedure a nd should not be used as the sole means of detecting cervical cancer. Both false- positiv e and false-negative reports do occur. Depending on your risk status, a Pap smear jimena uld be obtained and evaluated every one to three years. Final Interpretation electronically signed by: Carol Ann PIERRE(ASCP) 08/06/11 123 6 -- -- DEPARTMENT OF PATHOLOGY, [address] [place] [address] [facility] Permit #[id number] Michael Wood M.D. Director Josefina Hopson M.D. Hydration Plant Operator Dir chi -- 43 Anion gap measurement may be of limited value in the presence of any alkalosis, especially in a combined acid base disorder. . 44 Because ethnic data is not always readily available, this report includes an eGFR for both -Americans and non- Americans. The National Kidney Disease Education Program (NKDEP) does not endorse the use of the MDRD equation for patients that are not between the ages of 18 and 70, are , have extremes of body size, muscle mass, or nutritional status, or are non- or non-. According to the National Kidney Foundation, irrespective of diagnosis, the stage of the disease is based on the level of kidney function: Stage Description GFR(mL/min/1.73 m(2)) 1 Kidney damage with normal or decreased GFR 90 2 Kidney damage with mild decrease in GFR 60-89 3 Moderate decrease in GFR 30-59 4 Severe decrease in GFR 15-29 5 Kidney failure <15 (or dialysis) Procedures Date Code Description Status 04/25/2018 07788 EKG Tracing & Interpretation Completed 04/14/2018 45757 ECHO Transthoracic, Real-Time 2D With Doppler And Completed Color Flow 04/14/2018 90560 ECHO Transthoracic, Real-Time 2D With Doppler And Completed Color Flow 02/07/2018 [id number] Mammogram Completed 01/29/2017 [id number] Mammogram Completed 01/29/2017 32281 EKG Tracing & Interpretation Completed 01/28/2017 51343 ECHO Transthoracic, Real-Time 2D With Doppler And Completed Color Flow 01/28/2017 28040 ECHO Transthoracic, Real-Time 2D With Doppler And Completed Color Flow 01/21/2017 41084 Stress Test Completed 01/21/2017 60928 Myocardial Perfusion Imaging Tomographic (Spect) Completed Multiple Studies 12/07/2016 12443 Needle Electromyography, 1 Extremity Completed 06/19/2016 73234 Nerve Conduction 03-04 Studies Completed 06/19/2016 02263 Needle Electromyography Each Extremity W/Related Completed Paraspinal Areas 02/14/2016 27448 EKG Tracing & Interpretation Completed 01/30/2016 71086 ECHO Transthoracic, Real-Time 2D With Doppler And Completed Color Flow 01/25/2016 [id number] Mammogram Completed 05/31/2015 [id number] Bone Mineral Density Test Completed 01/21/2015 61580 Myocardial Perfusion Imaging Tomographic (Spect) Completed Multiple Studies 01/21/2015 22104 Myocardial Perfusion Imaging Tomographic (Spect) Completed Multiple Studies 01/21/2015 15448 Stress Test Completed 01/17/2015 [id number] Mammogram Completed 01/05/2015 71328 EKG Tracing & Interpretation Completed 12/28/2014 65523 ECHO Transthoracic, Real-Time 2D With Doppler And Completed Color Flow 07/09/2014 [id number] Mammogram Completed 06/10/2014 06389 Sleep Study Unattended,HRT Rate,Oxygen Sat,Resp Completed Effort/Airflow 01/08/2014 [id number] Mammogram Completed 12/23/2013 14276 EKG Tracing & Interpretation Completed 12/16/2013 78828 ECHO Transthoracic, Real-Time 2D With Doppler And Completed Color Flow 11/27/2012 43464 EKG Tracing & Interpretation Completed 11/17/2012 43155 Stress Test Completed 08/04/2012 53568 RT & lt Cath W/Injx HRT Art&L Ventr Img S&I Completed 2012 80989 EKG, Interpretation Only Completed 07/29/2012 53185 ECHO Transthoracic, Real-Time 2D With Doppler And Completed Color Flow 03/21/2012 16788 Laminotomy W/Decomp NRV RT,One Interspace,Lumbar Completed 03/14/2012 63090 EKG, Interpretation Only Completed 01/29/2012 95499 EKG Tracing & Interpretation Completed 01/25/2012 39628 ECHO Transthoracic, Real-Time 2D With Doppler And Completed Color Flow 08/09/2011 [id number] Bone Mineral Density Test Completed 08/08/2011 [id number] Bone Mineral Density Test Completed 08/08/2011 20041975 Mammogram Completed 01/05/2010 [id number] Mammogram Completed 06/23/2009 [id number] Mammogram Completed 01/04/2009 [id number] Colonoscopy Completed 12/24/2008 [id number] Mammogram Completed 12/10/2008 72023 EKG Tracing & Interpretation Completed Encounters Type Date Location Provider Dx Diagnosis Office Visit 04/25/2018 [facility] William Tong I35.2 Nonrheumatic aortic 9:00a Of Gogo Lombardo M.D., (valve) stenosis FACC, FASNC with insufficiency Z95.2 Presence of prosthetic heart valve I77.810 Thoracic aortic ectasia F17.210 Nicotine dependence, cigarettes, uncomplicated R94.31 Abnormal electrocardiogram [ECG] [EKG] Office Visit 12/13/2017 11:40a [facility] Internal Nae Wesley, J20.9 Acute bronchitis, Medicine - N.P. unspecified [place] H66.91 Otitis media, unspecified, right ear H66.92 Otitis media, unspecified, left ear Office Visit 12/05/2017 9:40a [facility] Internal Nae Wesley, J01.90 Acute sinusitis, Medicine N.P. unspecified J20.9 Acute bronchitis, unspecified Office Visit 05/27/2017 9:20a [facility] Nae Wesley, Z95.2 Presence of Medicine N.P. prosthetic heart valve E78.00 Pure hypercholesterolemia, unspecified N95.9 Unspecified menopausal and perimenopausal disorder F41.9 Anxiety disorder, unspecified M54.17 Radiculopathy, lumbosacral region F17.211 Nicotine dependence, cigarettes, in remission Z01.419 Encntr for insurance appraiser exam (general) (routine) w/o abn findings Office Visit 01/29/2017 3:00p [facility] William Tong Z95.2 Presence of Of Gogo Lombardo M.D., prosthetic heart FACC, FASNC valve I77.810 Thoracic aortic ectasia Office Visit 01/17/2017 [facility] Antoinette Gong Z01.818 Encounter for other 4:20p Medicine Yimi Barr M.D. preprocedural [address] examination M51.16 Intervertebral disc disorders w radiculopathy, lumbar region I35.0 Nonrheumatic aortic (valve) stenosis G47.33 Obstructive sleep apnea (adult) (pediatric) Office Visit 12/07/2016 [facility] Faviola Ibanez, M51.16 Intervertebral disc 10:00a Neurologic M.D. disorders w Services Of [facility] radiculopathy, lumbar region Office Visit 08/31/2016 Sharon Ibanez, R20.2 Paresthesia of skin 10:00a Neurologic M.D. Services Of [facility] M54.16 Radiculopathy, lumbar region M25.562 Pain in left knee Office Visit 05/23/2016 9:00a [facility] Internal Nae Wesley, Z00.01 Encounter for Medicine N.P. general adult medical exam w abnormal findings I35.9 Nonrheumatic aortic valve disorder, unspecified E78.00 Pure hypercholesterolemia, unspecified F41.9 Anxiety disorder, unspecified F17.210 Nicotine dependence, cigarettes, uncomplicated G47.33 Obstructive sleep apnea (adult) (pediatric) R20.2 Paresthesia of skin Office Visit 03/21/2016 Pulmonology And Joana G47.33 Obstructive sleep 10:00a Sleep Services Of FILIBERTO Peck, RN, apnea (adult) [facility]- (pediatric) Office Visit 02/14/2016 [facility] William Ran I35.9 Nonrheumatic 11:30a Of [facility] Taj Lombardo, aortic valve FACC, FASNC disorder, unspecified Z95.2 Presence of prosthetic heart valve I27.2 Other secondary pulmonary hypertension F17.210 Nicotine dependence, cigarettes, uncomplicated Office Visit 12/02/2015 2:20p [facility] Nae Wesley L98.9 Disorder of the Medicine N.P. skin and subcutaneous tissue, unspecified Office Visit 08/18/2015 11:00a [facility] Nae Wesley, J01.10 Acute frontal Medicine N.P. sinusitis, unspecified Office Visit 08/08/2015 4:20p [facility] Jefry Rios06.9 Acute upper Medicine Taj Bolaños respiratory infection, unspecified Office Visit 05/23/2015 9:20a [facility] Nae Wesley, Z00.00 Encntr for general Medicine N.P. adult medical exam w/o abnormal findings I35.0 Nonrheumatic aortic (valve) stenosis F17.210 Nicotine dependence, cigarettes, uncomplicated G47.33 Obstructive sleep apnea (adult) (pediatric) F41.9 Anxiety disorder, unspecified M85.89 Oth disrd of bone density and structure, multiple sites E78.0 Pure hypercholesterolemia M62.08 Separation of muscle (nontraumatic), other site Office Visit 03/16/2015 10:45a Pulmonology And Amalia G47.33 Obstructive sleep [facility] Maged apnea (adult) [facility] (pediatric) Office Visit 01/25/2015 2:15p [facility] William Tong I35.9 Nonrheumatic Of Statistical Developer Taj Lombardo, aortic valve FACC, FASNC disorder, unspecified Office Visit 01/05/2015 8:45a [facility] William Tong I35.9 Nonrheumatic Of [facility] Taj Lombardo, aortic valve FACC, FASNC disorder, unspecified I35.0 Nonrheumatic aortic (valve) stenosis Office Visit 09/24/2014 10:40a [facility] Barber Weinstein, [employer] TE[employer]ER 381.01 Otitis Media Medicine Serous Acute 465.9 URI Upper Respiratory Infections Acute Unspec Sites Office Visit 09/13/2014 1:30p [facility] 327.23 Obstructive Sleep [facility] Maged Apnea 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 General Medical Routine AT Health Care Facility V72.31 Routine Telephone Solicitor Examination 424.1 Aortic Valve Disorder 311 Depressive Disorder Not Elsewhere Spec 305.1 Tobacco Use Disorder 780.79 Malaise And Fatigue Other 793.80 Unspecified Abnormal Mammogram 780.57 Unspecified Sleep Apnea Office Visit 12/23/2013 Sharon Tong 424.1 Aortic Valve 10:45a Cardiology Taj Lombardo, Disorder FACC, FASNC Office Visit 10/12/2013 [facility] Nae Wesley, 372.00 Conjunctivitis Acute 11:20a Medicine N.P. Unspec Office Visit 06/23/2013 [facility] Nae Maryjane, 386.11 Vertigo Benign 2:40p Medicine N.P. Paroxysmal Position 368.2 Diplopia Office Visit 04/24/2013 4:20p [facility] Nae Maryjane, 382.9 Otitis Media Unspec Medicine N.P. Office Visit 02/13/2013 9:00a [facility] Nae Maryjane, 709.9 Skin & Subcutaneous Medicine N.P. Tissue Disorders Unspec Office Visit 11/28/2012 9:00a [facility] Nae Maryjane, 784.0 Headache Medicine N.P. 723.1 Cervicalgia Office Visit 11/27/2012 9:15a [facility] William Tong 424.1 Aortic Valve Of Gogo Lombardo M.D., Disorder FACC, FASNC Office Visit 10/22/2012 1:20p [facility] Nae Wesley, 424.1 Aortic Valve Medicine N.P. Disorder Office Visit 09/04/2012 9:15a [facility] William Tong 424.1 Aortic Valve Of Gogo Lombardo M.D., Disorder FACC, FASNC Office Visit 08/13/2012 10:45a [facility] Clyde Stahl 424.1 Aortic Valve Of Gogo Quiroga M.D. Disorder V58.41 Postoperative Wound Closure Encounter Office Visit 2012 7:49a [facility] 786.59 Pain Chest Assoc,pc II, M.D. 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.59 Pain Chest Assoc,pc II, M.D. 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 Office Visit 03/05/2012 Neurosurgery Chris Jeter 724.02 Spinal Stenosis, 9:40a Services Of Gogo Wan M.D. Lumbar Region, W/O Neurogenic Claudication Office Visit 02/25/2012 Neurosurgery Chris Jeter 724.02 Spinal Stenosis, 3:00p Services Of Gogo Wan M.D. Lumbar Region, W/O Neurogenic Claudication Office Visit 02/18/2012 [facility] Nae Wesley, 724.5 Backache Unspec 3:20p Medicine N.P. Office Visit 01/29/2012 [facility] William Tong 424.1 Aortic Valve 11:30a Of Gogo Lombardo M.D., Disorder FACC, FASNC Office Visit 01/08/2012 [facility] Nae Varn, 300.00 Anxiety State 8:40a Medicine N.P. Unspec 372.00 Conjunctivitis Acute Unspec Office Visit 12/14/2011 9:00a [facility] Nae Varliliam, 466.0 Bronchitis Acute Medicine N.P. Office Visit 12/07/2011 10:00a [facility] Nae Varn, 300.00 Anxiety State Medicine N.P. Unspec 382.9 Otitis Media Unspec Office Visit 09/03/2011 8:40a [facility] Nae Varn, 300.00 Anxiety State Medicine N.P. Unspec Office Visit 2011 9:20a [facility] Nae Varn, V70.0 Examination Medicine N.P. General Medical Routine AT Health Care Facility V72.31 Routine Telephone Solicitor Examination V76.10 Screening For Malignant Neoplasm Breast 424.1 Aortic Valve Disorder 733.90 Bone & Cartilage Disorder Unspec 305.1 Tobacco Use Disorder 719.49 Pain Joint Multiple Sites 300.00 Anxiety State Unspec Office Visit 2010 DO Not Use Nae 845.13 Sprains & Strains 10:00a [facility] Varn, N.P. Foot Interphalangeal (Joint) Toe Office Visit 10/03/2009 DO Not Use Nae 372.30 Conjunctivitis 4:30p [facility] Varn, N.P. Unspec 729.82 Cramp Of Limb Office Visit 09/26/2009 DO Not Use Nae 372.30 Conjunctivitis 1:30p [facility] Varn, N.P. Unspec 373.11 Hordeolum Externum Office Visit 12/10/2008 DO Not Use Nae Varn, V72.31 Routine Telephone Solicitor 1:45p Wilma N.P. Examination V06.1 Ucsrolhgkr-Fktvpvs-Nfgteczl Combined (DTaP) Office Visit 11/11/2008 DO Not Use Nae 719.41 Pain Joint 8:30a Gogo-Micky Wesley, N.P. Shoulder Region Office Visit 10/04/2008 DO Not Use Nae 708.9 Urticaria Unspec 1:15p Gogo-Micky Wesley, N.P. Office Visit 10/01/2008 DO Not Use Christal Pereira 708.9 Urticaria Unspec 1:45p Wilma Vang, FACP Office Visit 08/11/2008 DO Not Use Nae 727.05 Tenosynovitis Hand 9:30a Gogo-Micky Wesley, N.P. & Wrist Other 311 Depressive Disorder Not Elsewhere Spec 300.00 Anxiety State Unspec Plan of Treatment Future Appointment(s):12/23/2018 8:40 am - Nae Wesley N.P. at [facility] Yitkonom06/29/2019 - Nae Wesley N.P.M79.605 Pain in left legNew Xrays:VL Ank /Brachial Indices, Ordered: 06/16/18Comments:To further evaluate your leg pain I have ordered an ultrasound to look at your arteries to be sure your circulation is working well. I will contact you with your results.I think you could benefit from taking Magnesium, 400 mg daily. Be sure to stay hydrated. I may add Neurontin if nothing else seems to help.
[2018-07-16] MEDS ORDERED: NS 0.9% 1000 ML** 1,000 ML IV ONE (13:33)
--- NOTE | 2018-07-16 13:44 | ED ---
Abdominal Pain/Female - HPI Summary HPI Summary: Pt is a 62 y/o F with left mid back pain x 4 days that radiates to the left lower abdomen. She states it waxes and wanes, with pain fluctuating from 4/10 to 9/10, and that she has a difficult time getting into a comfortable position d /t the pain. She has nausea but denies vomiting, diarrhea. She states she feels bloated and that she is urinating less frequently with little output. She denies dysuria, vaginal discharge, hematuria. She denies fever but has had chills. Denies having similar sx previously. Denies hx of UTI and kidney stones. Denies headache and chest pain. - History of Current Complaint Chief Complaint: EDFlankPain Stated Complaint: LOWER LT BACK/ABD PAIN Time Seen by Provider: 07/16/18 13:17 Hx Obtained From: Patient Onset/Duration: Lasting Days Timing: Constant - waxes and wanes Severity Initially: Mild Severity Currently: Moderate Pain Intensity: 7 Pain Scale Used: 0-10 Numeric Location: Flank Radiates: Yes Radiates to: LLQ Character: Sharp Aggravating Factor(s): Nothing Alleviating Factor(s): Medications - hydrocodone Associated Signs and Symptoms: Positive: Nausea. Negative: Fever, Cough, Chest Pain, Urinary Symptoms, Vomiting Allergies/Adverse Reactions: Allergies Allergy/AdvReac Type Severity Reaction Status Date / Time Penicillins Allergy Severe Rash Verified 07/16/18 12:41 Home Medications: Home Medications Magnesium Oxide [Magnesium] 250 mg PO BEDTIME 07/16/18 [History Confirmed ] Simvastatin TAB(NF) [Zocor 10 MG (NF)] 10 mg PO BEDTIME 07/16/18 [History Confirmed 07/16/18] PMH/Surg Hx/FS Hx/Imm Hx Endocrine/Hematology History: Denies: Hx Diabetes, Hx Thyroid Disease Cardiovascular History: Reports: Hx Valvular Heart Disease, Other Cardiovascular Problems/Disorders - Aortic Stenosis Denies: Hx Hypertension, Hx Pacemaker/ICD Respiratory History: Denies: Hx Asthma, Hx Chronic Obstructive Pulmonary Disease (COPD) GI History: Denies: Hx Ulcer History: Denies: Hx Kidney Infection, Hx Kidney Stones, Hx Renal Disease Musculoskeletal History: Reports: Hx Arthritis - KNEES, Other Musculoskeletal History - osteopenia Denies: Hx Osteoporosis Sensory History: Reports: Hx Contacts or Glasses Denies: Hx Hearing Aid Opthamlomology History: Reports: Hx Contacts or Glasses Neurological History: Reports: Other Neuro Impairments/Disorders - HERNIATED L4- 5 Psychiatric History: Denies: Hx Panic Disorder - Cancer History Hx Chemotherapy: No Hx Radiation Therapy: No - Surgical History Surgery Procedure, Year, and Place: DISC SURGERY L 4-5, AND 01/2017 - L5 - S1 DISCECTOMY. aortic valve replacement 2012,. tubes ears,. T/A,. REMOVED LUMP ON FINGER/MOLE ON FOREHEAD Hx Anesthesia Reactions: No Infectious Disease History: No Infectious Disease History: Denies: Hx Clostridium Difficile, Hx Hepatitis, Hx Human Immunodeficiency Virus (HIV), Hx of Known/Suspected MRSA, Hx Shingles, Hx Tuberculosis, Hx Known/ Suspected VRE, Hx Known/Suspected VRSA, History Other Infectious Disease, Traveled Outside the [place] in Last 30 Days - Social History Alcohol Use: Weekly Substance Use Type: Reports: None Smoking Status (MU): Heavy Every Day Tobacco Smoker Type: Cigarettes Amount Used/How Often: 10 daily Review of Systems Positive: Chills. Negative: Fever Negative: Chest Pain Positive: Abdominal Pain - Left flank pain radiating to LLQ., Nausea, Other - Constipation, last BM 2 days ago. Bloating.. Negative: Vomiting, Diarrhea Positive: flank pain, other - urinary retention. Negative: dysuria, discharge, frequency, hematuria Negative: Headache All Other Systems Reviewed And Are Negative: Yes Physical Exam Triage Information Reviewed: Yes Vital Signs On Initial Exam: Initial Vitals Temp Pulse Resp BP Pulse Ox 98.2 F 77 16 178/102 99 07/16/18 12:38 07/16/18 12:38 07/16/18 12:38 07/16/18 12:38 07/16/18 12:38 Vital Signs Reviewed: Yes Appearance: Positive: Well-Appearing, Well-Nourished Skin: Positive: Warm, Dry. Negative: Diaphoretic Head/Face: Positive: Normal Head/Face Inspection Eyes: Positive: Normal ENT: Positive: Normal ENT inspection Respiratory/Lung Sounds: Positive: Clear to Auscultation Cardiovascular: Positive: Normal Abdomen Description: Positive: Soft, CVA Tenderness (L), Distended. Negative: Nontender - LLQ., CVA Tenderness (R), Guarding Bowel Sounds: Positive: Present Musculoskeletal: Positive: Normal Neurological: Positive: Normal Psychiatric: Positive: Normal Diagnostics - Vital Signs Vital Signs Temp Pulse Resp BP Pulse Ox 07/16/18 12:38 98.2 F 77 16 178/102 99 - Laboratory Result Diagrams: 07/16/18 14:04 07/16/18 14:04 Lab Statement: Any lab studies that have been ordered have been reviewed, and results considered in the medical decision making process. - CT CT Abd/Pelvis CT Interpretation Completed By: Radiologist Summary of CT Findings: no hydronephrosis, no nephrolithiasis. Re-Evaluation - Re-Evaluation First eval Re-Evaluation Time: 14:33 Change: Unchanged Comment: Refuses pain medication. Abdominal Pain Fem Course/Dx - Course Course Of Treatment: pt is 62 y/o female, denies hx of UTI and kidney stones, presents with left flank pain radiates to LLQ. U/A, CBC, CMP are WNL. CT abd/ pelvis shows no hydronephrosis or nephrolithiasis. Pt given ibuprofen prior to d /c home. Pt to f/u with PCP or to return with new or worsening sx. - Diagnoses Differential Diagnosis: Positive: Constipation, Diverticulitis, Other - pyelonephritis, nephrolithiasis, obstructive nephrolithiasis Provider Diagnoses: Left flank pain Discharge - Sign-Out/Discharge Documenting (check all that apply): Patient Departure Patient Received Moderate/Deep Sedation with Procedure: No - Discharge Plan Condition: Improved Disposition: HOME Patient Education Materials: Flank Pain (ED) Referrals: Simran Wild MD [Primary Care Provider] - Additional Instructions: Moist heat to the area Follow up with your PCP If any symptoms worsen, return to the ED As discussed, CT scan, labs and urine were all normal today - Billing Disposition and Condition Condition: IMPROVED Disposition: Home - Attestation Statements Document Initiated by Scribe: Yes Documenting Scribe: VANDANA Quick Provider For Whom Scribe is Documenting (Include Credential): lyn Cano Attestation: Andrey Whitley PA-S, scribed for lyn on 07/16/18 at 1535. Scribe Documentation Reviewed: Yes Provider Attestation: The documentation as recorded by the scribAndrey cordon PA-S accurately reflects the service I personally performed and the decisions made by lyn wheat Status of Scribe Document: Viewed
[2018-07-16 14:19] LABS: ABS Basophils 0.1 10^3/ul (0-0.2); ABS Lymphocytes 1.6 10^3/ul (1.0-4.8); ABS Monocytes 0.5 10^3/ul (0-0.8); ABS Neutrophils 4.4 10^3/ul (1.5-7.7); Eosinophil % 0.5 %; Hematocrit 43 % (35-47); Hemoglobin 14.6 g/dL (12.0-16.0); Lymphocyte % 23.5 %; Mean Corpuscular HGB Conc 34 g/dL (31-36); Mean Corpuscular Hemoglobin 32 pg (27-31); Mean Corpuscular Volume 93 fL (80-97); Mean Platelet Volume 8.2 fL (7.4-10.4); Nucleated Red Blood Cells % 0.1; Platelet Count 186 10^3/uL (150-450); Red Blood Count 4.61 10^6 /uL (3.70-4.87); Red Cell Distribution Width 13 % (10.5-15); White Blood Count 6.6 10^3/uL (3.5-10.8)
[2018-07-16 14:49] LABS: Urine Appearance Cloudy; Urine Bilirubin Negative (Negative); Urine Blood Negative (Negative); Urine Color Straw; Urine Glucose Negative (Negative); Urine Ketones Trace (Negative); Urine Nitrite Negative (Negative); Urine Protein Negative (Negative); Urine Specific Gravity 1.008 (1.010-1.030); Urine Urobilinogen Negative (Negative)
[2018-07-16 14:58] LABS: Albumin 4.8 g/dL (3.2-5.2); Albumin/Globulin Ratio 1.9 (1-3); BUN/Creatinine Ratio 13.8 (8-20); C Reactive Protein 2.09 mg/L (<8.01); Calcium 10.1 mg/dL (8.6-10.3); EGFR African American 88.5 (>60); EGFR Non-African American 73.2 (>60); Globulin 2.5 g/dL (2-4); Total Bilirubin 0.4 mg/dL (0.2-1.0); Total Protein 7.3 g/dL (6.4-8.9)
[2018-07-16] MEDS ORDERED: Ibuprofen TAB* 600 MG PO ONE (15:19)
[2018-07-16 15:42] VITALS: BP 147/84
== END 2018-07-16 15:47 | disposition home or self-care (01) ==
LOC: ED 12:21
DX: R10.9 Unspecified abdominal pain (principal); I70.90 Unspecified atherosclerosis; K42.9 Umbilical hernia without obstruction or gangrene; M85.80 Other specified disorders of bone density and structure, unspecified site; F17.210 Nicotine dependence, cigarettes, uncomplicated; Z88.0 Allergy status to penicillin
CPT/HCPCS: 36415; 74176; 80053; 81003; 85025; 86140; 96360; 99283; A9270-GY

== ENCOUNTER 2018-12-23 05:40 | Inpatient (IN) | payer BC ==
[~2018-12-23 05:40] MED LIST: Buffered Lidocaine 1% SYRIN* 1 ML/SYRINGE INTRADERM ONE; Vancomycin(*) 1,000 MG in NS 0.9% 250 ML* 250 ML IVPB SCH
--- OUTSIDE RECORDS SUMMARY | 2018-12-23 05:42 | XMS REPORT | Continuity of Care Document ---
:1955 External Reference #:[id number] Author Name William Lombardo M.D., [facility] (transmitted by agent of provider Meenu Rodriguez) Address [address] [place] [id number] Problems Active Problems Provider Date Aortic valve disorder Nae Wesley, N.P. Onset: 2011 Osteochondropathy Nae Varn, N.P. Onset: 2011 Tobacco user Nae Varn, N.P. Onset: 2011 Anxiety state Nae Jose Rn, N.P. Onset: 2011 Disturbance in sleep behavior Amalia Lynne MD Onset: 06/02/2014 Malaise and fatigue Amalia Lynne MD Onset: 06/02/2014 Obstructive sleep apnea syndrome Amalia Lynne MD Onset: 07/05/2014 Lumbosacral radiculopathy Faviola Ibanez M.D. Onset: 12/07/2016 Note: left L5/S1 Dyspnea William Lombardo M.D., [facility] Onset: 01/29/2017 Thoracic aortic ectasia [facility] Onset: 01/29/2017 Heart valve replacement William Lombardo M.D., [facility] Onset: 12/08/2018 Social History Type Date Description Comments Sex Unknown ETOH Use Currently consumes Only weekends - 4 - alcohol 5 beers Recreational Drug Use Denies Drug Use Tobacco Use Start: Unknown Patient is a current smoker, smokes every day Smoking Status Reviewed: 12/08/18 Patient is a current smoker, smokes every day Exercise Type/Frequency Exercises sporadically Allergies, Adverse Reactions, Alerts Active Allergies Reaction Severity Comments Date Penicillin RASH Moderate 10/03/2009 Medications Active Medications SIG Qnty Indications Ordering Date Provider Lisinopril 1 by mouth every 30tabs I10 Nae Wesley, 12/08/2018 10mg day N.P. Tablets Tramadol HCL 1 tablet three 60tabs Nae Wesley, 08/08/2018 50mg times daily as N.P. Tablets needed Cpap Mask And use nightly with 1units Nae Wesley, 06/21/2017 Supplies cpap machine icd N.P. Device 10: g47.33 (occasionally) Simvastatin take one tablet by 30tabs Nae Wesley, 05/24/2016 10mg mouth at bedtime N.P. Tablets Azithromycin take 1 tablet 30 - 4tabs Nae Wesley, 02/06/2012 500mg 60 minutes bfore N.P. Tablets dental appointment Sertraline HCL take one tablet by 30tabs Nae Wesley, 12/07/2011 50mg mouth every day N.P. Tablets Caltrate 600+D Plus 1 po bid Unknown [id number] Tablets Ibuprofen 200 2 every 6 hours as Unknown 200mg needed for pain. Tablets Medications Administered in Office Medication SIG Qnty Indications Ordering Provider Date Inj, Regadenoson, 0.1 MG William Lombardo M.D., 11/17/2018 Injection FACC, FASNC Aminophylline William Lombardo M.D., 11/17/2018 Injection FACC, FASNC Technetium TC 99M William Lombardo M.D., 11/17/2018 Tetrofosmin, Per Unit Dose Up FACC, FASNC To 40 Millicuries Injection Technetium TC 99M William Lombardo M.D., 11/17/2018 Tetrofosmin, Per Unit Dose Up FACC, FASNC To 40 Millicuries Injection Technetium TC 99M William Lombardo M.D., 01/21/2017 Tetrofosmin, Per Unit Dose Up FACC, FASNC To 40 Millicuries Injection Technetium TC 99M Clyde Quiroga M.D. 01/21/2015 Tetrofosmin, Per Unit Dose Up To 40 Millicuries Injection Technetium TC 99M BENIGNO Hamm 01/21/2015 Tetrofosmin, Per Unit Dose Up To 40 Millicuries Injection Immunizations CPT Code Status Date Vaccine Lot # [id number] Given 12/10/2008 Tdap - Tetanus/Diptheria/Acellular Pertussis Vital Signs Date Vital Result Comment 12/08/2018 12:39pm Height 61.25 inches 5'1.25" Weight 154.00 lb with shoes Heart Rate 66 /min BP Systolic Sitting 126 mmHg Lue reg cuff BP Diastolic Sitting 84 mmHg Lue reg cuff BP Systolic Standing 130 mmHg Lue reg cuff BP Diastolic Standing 82 mmHg Lue reg cuff Respiratory Rate 14 /min BMI (Body Mass Index) 28.9 kg/m2 Ejection Fraction 60-65% date 11/24/18 ECHO 12/08/2018 11:01am Height 61.25 inches 5'1.25" Weight 152.00 lb Heart Rate 78 /min BP Systolic 141 mmHg BP Diastolic 88 mmHg O2 % BldC Oximetry 100 % BMI (Body Mass Index) 28.5 kg/m2 Results Test Date Facility Test Result H/L Range Note CBC Auto 07/16/2018 [facility] White Blood 6.6 10^3/uL Normal 3.5-10.[address] [place] [address] [phone] Red Blood Count 4.61 10^6/uL Normal 3.70-4.87 Hemoglobin 14.6 g/dL Normal 12.0-16.0 Hematocrit 43 % Normal 35-47 Mean Corpuscular Volume 93 fL Normal 80-97 Mean Corpuscular Hemoglobin 32 pg High 27-31 Mean Corpuscular HGB Conc 34 g/dL Normal 31-36 Red Cell Distribution Width 13 % Normal 10.5-15 Platelet Count 186 10^3/uL Normal 150-450 Mean Platelet Volume 8.2 fL Normal 7.4-10.4 Abs Neutrophils 4.4 10^3/uL Normal 1.5-7.7 Abs Lymphocytes 1.6 10^3/uL Normal 1.0-4.8 Abs Monocytes 0.5 10^3/uL Normal 0-0.8 Abs Eosinophils 0.0 10^3/uL Normal 0-0.6 Abs Basophils 0.1 10^3/uL Normal 0-0.2 Abs Nucleated RBC 0.0 10^3/uL Granulocyte % 67.3 % Lymphocyte % 23.5 % Monocyte % 7.6 % Eosinophil % 0.5 % Basophil % 1.1 % Nucleated Red Blood Cells % 0.1 Comp Metabolic 07/16/2018 [facility] Sodium 138 mmol/L Normal 135-145 Panel [address] [place] [address] [phone] Potassium 4.0 mmol/L Normal 3.5-5.0 Chloride 103 mmol/L Normal 101-111 Co2 Carbon Dioxide 30 mmol/L Normal 22-32 Anion Gap 5 mmol/L Normal 2-11 Glucose 100 mg/dL Normal 70-100 Blood Urea Nitrogen 11 mg/dL Normal 6-24 Creatinine 0.80 mg/dL Normal 0.51-0.95 BUN/Creatinine Ratio 13.8 Normal 8-20 Calcium 10.1 mg/dL Normal 8.6-10.3 Total Protein 7.3 g/dL Normal 6.4-8.9 Albumin 4.8 g/dL Normal 3.2-5.2 Globulin 2.5 g/dL Normal 2-4 Albumin/Globulin Ratio 1.9 Normal 1-3 Total Bilirubin 0.40 mg/dL Normal 0.2-1.0 Alkaline Phosphatase 61 U/L Normal 34-104 Alt 18 U/L Normal 7-52 Ast 17 U/L Normal 13-39 Egfr Non- 73.2 >60 Egfr 88.5 >60 1 Laboratory test 07/16/2018 [facility] C Reactive 2.09 mg/L Normal <8.01 finding [address] [facility] [place] [address] [phone] Urinalysis 07/16/2018 [facility] Urine Color Straw Profile [address] [place] [address] [phone] Urine Appearance Cloudy Urine Specific [place] 1.008 Low 1.010-1.030 Urine pH 7.0 Normal 5-9 Urine Urobilinogen Negative Negative Urine Ketones Trace Abnormal Negative Urine Protein Negative Negative Urine Leukocytes Negative Negative Urine Blood Negative Negative Urine Nitrite Negative Negative Urine Bilirubin Negative Negative Urine Glucose Negative Negative Ua Routine 07/16/2018 [facility] Ua Specific [place] 1.015 Ua PH 5 Ua Color yellow Ua Appera clear Ua WBC neg Ua Protein neg Ua Glucose norm Ua Ketones neg Ua Bilirubin neg Ua Urobilinogen norm Ua Nitrite neg Ua Occult Blood neg Basic Metabolic 06/16/2018 [facility] Sodium 138 mmol/L Normal 135-[address] [place] [address] [phone] Potassium 4.8 mmol/L Normal 3.5-5.0 Chloride 103 mmol/L Normal 101-111 Co2 Carbon Dioxide 29 mmol/L Normal 22-32 Anion Gap 6 mmol/L Normal 2-11 Glucose 82 mg/dL Normal 70-100 Blood Urea Nitrogen 15 mg/dL Normal 6-24 Creatinine 0.88 mg/dL Normal 0.51-0.95 BUN/Creatinine Ratio 17.0 Normal 8-20 Calcium 9.7 mg/dL Normal 8.6-10.3 Egfr Non- 65.5 >60 Egfr 79.3 >60 2 1 Because ethnic data is not always readily [...] 15-29 5 Kidney failure <15 (or dialysis) 2 Because ethnic data is not always [...] (or dialysis) Procedures Date Code Description Status 12/08/2018 63342 EKG Tracing & Interpretation Completed 11/24/2018 20321 ECHO Transthoracic, Real-Time 2D With Doppler And Completed Color Flow 11/17/2018 76620 Stress Test Completed 11/17/2018 84620 Myocardial Perfusion Imaging Tomographic (Spect) Completed Multiple Studies 09/23/2018 31427 Nerve Conduction 05-06 Studies Completed 09/23/2018 97653 Needle Electromyography Complete, Five Or More Muscles Completed Studied 02/07/2018 [id number] Mammogram Completed 01/29/2017 [id number] Mammogram Completed 01/25/2016 [id number] Mammogram Completed 05/31/2015 [id number] Bone Mineral Density Test Completed 01/17/2015 [id number] Mammogram Completed 07/09/2014 [id number] Mammogram Completed 01/08/2014 [id number] Mammogram Completed 08/09/2011 [id number] Bone Mineral Density Test Completed 08/08/2011 [id number] Mammogram Completed 08/08/2011 [id number] Bone Mineral Density Test Completed 01/05/2010 [id number] Mammogram Completed 06/23/2009 [id number] Mammogram Completed 01/04/2009 [id number] Colonoscopy Completed 12/24/2008 [id number] Mammogram Completed Medical Devices Description No Information Available Encounters Type Date Location Provider Dx Diagnosis Office Visit 09/25/2018 Neurosurgery Courtney Espinosa, M54.16 Radiculopathy, 2:00p [facility] lumbar region Office Visit 09/03/2018 Neurosurgery Courtney Espinosa M54.16 Radiculopathy, 11:30a [facility] lumbar region M79.605 Pain in left leg Office Visit 07/16/2018 10:20a [facility] Internal Gladys Butcher MD M54.5 Low back pain Medicine - [facility] M54.16 Radiculopathy, lumbar region R39.11 Hesitancy of micturition Office Visit 06/16/2018 1:40p [facility] Internal Nae Wesley M79.605 Pain in left Medicine - [facility] N.P. leg Assessments Date Code Description Provider 12/08/2018 Z95.2 Presence of prosthetic heart valve William Lombardo M.D., [facility] 12/08/2018 Z01.818 Encounter for other preprocedural Nae Odelln, N.P. examination 12/08/2018 I77.810 Thoracic aortic ectasia William Lombardo M.D., [facility] 12/08/2018 M54.16 Radiculopathy, lumbar region Nae Varn, N.P. 12/08/2018 Z95.2 Presence of prosthetic heart valve Nae Varn, N.P. 12/08/2018 I77.810 Thoracic aortic ectasia Nae Varn, N.P. 12/08/2018 G47.33 Obstructive sleep apnea (adult) Nae Varn, N.P. (pediatric) 12/08/2018 I10 Essential (primary) hypertension Nae Varn, N.P. 11/24/2018 Z95.2 Presence of prosthetic heart valve Ica ECHO Schedule 11/24/2018 I77.810 Thoracic aortic ectasia Ica ECHO Schedule 11/17/2018 R94.31 Abnormal electrocardiogram [ECG] William Lombardo M.D., [facility], [EKG] [facility] 11/06/2018 M54.16 Radiculopathy, lumbar region Jensen Russell MD 11/06/2018 M43.16 Spondylolisthesis, lumbar region Jensen Russell MD 11/06/2018 M51.36 Other intervertebral disc Jensen Russell MD degeneration, lumbar region 11/03/2018 M54.16 Radiculopathy, lumbar region Jensen Russell MD 11/03/2018 M43.16 Spondylolisthesis, lumbar region Jensen Russell MD 11/03/2018 M51.36 Other intervertebral disc Jensen Russell MD degeneration, lumbar region 09/25/2018 M54.16 Radiculopathy, lumbar region BENIGNO Boyle 09/23/2018 G57.82 Other specified mononeuropathies of Federico Chen MD left lower limb 09/03/2018 M54.16 Radiculopathy, lumbar region BENIGNO Boyle 09/03/2018 M79.605 Pain in left leg BENINGO Boyle 07/16/2018 M54.5 Low back pain Gladys Butcher MD 07/16/2018 M54.16 Radiculopathy, lumbar region Gladys Butcher MD 07/16/2018 R39.11 Hesitancy of micturition Gladys Butcher MD 06/16/2018 M79.605 Pain in left leg Nae Wesley N.P. Plan of Treatment Future Appointment(s):12/23/2018 7:30 am - BENIGNO Boyle at [facility]12/23/2018 7:30 am - Jensen Russell MD at [facility]12/18/2018 1:00 pm - BENIGNO Boyle at [facility]12/08/2018 - Nae Wesley N.P.Z01.818 Encounter for other preprocedural examinationComments:I am ordering some routine preoperative lab work. The office will contact you with your results. Youmay take all of your usual medications the morning of your surgery, unless your surgeon tells you otherwise. Please stop taking Aspirin, or Aspirin like products for 1 week prior to your surgery. Be sure to bring your CPAP with you to the hospital.M54.16 Radiculopathy, lumbar xcjnxoK08.2 Presence of prosthetic heart xwwxiQ74.810 Thoracic aortic ectasiaNew Orders:Echocardiogram, Ordered: G47.33 Obstructive sleep apnea (adult) (pediatric)I10 Essential (primary) hypertensionNew Medication:Lisinopril 10 mg - 1 by mouth every dayComments:For your elevated blood pressure I have prescribed Lisinopril 10 mg. Take 1 tablet once daily. Functional Status Description No Information Available Mental Status Description No Information Available Referrals Refer to Reason for Referral Status Appt Date Deepak Vega MD Created [address] [place] [address] [phone] Jensen Russell MD Patient with persistent back pain. Referred Sent 09/03/2018 for evaluation. [address] [place] [address] [phone]
--- OUTSIDE RECORDS SUMMARY | 2018-12-23 05:42 | XMS REPORT | Continuity of Care Document ---
:1955 External Reference #:[id number] Author Name BENIGNO Boyle (transmitted by agent of provider Michelle Lo) Address [address], [place] [address] Problems Active Problems Provider Date Aortic valve disorder Nae Varn, N.P. Onset: 2011 Osteochondropathy Nae Varn, N.P. Onset: 2011 Tobacco user Nae Wesley, N.P. Onset: 2011 Anxiety state Nae Varn, N.P. Onset: 2011 Disturbance in sleep behavior Amalia Lynne MD Onset: 06/02/2014 Malaise and fatigue Amalia Lynne MD Onset: 06/02/2014 Obstructive sleep apnea syndrome Amalia Lynne MD Onset: 07/05/2014 Lumbosacral radiculopathy Faviola Ibanez M.D. Onset: 12/07/2016 Note: left L5/S1 Dyspnea William Lombardo M.D., [facility] Onset: 01/29/2017 Thoracic aortic ectasia William Lombardo M.D., [facility], [place] Onset: 01/29/2017 Heart valve replacement William Lombardo M.D., [facility], [place] Onset: 12/08/2018 Social History Type Date Description Comments Sex Unknown ETOH Use Currently consumes Only weekends - 4 - alcohol 5 beers Recreational Drug Use Denies Drug Use Tobacco Use Start: Unknown Patient is a current smoker, smokes every day Smoking Status Reviewed: 12/18/18 Patient is a current smoker, smokes every day Exercise Type/Frequency Exercises sporadically Allergies, Adverse Reactions, Alerts Active Allergies Reaction Severity Comments Date Penicillin RASH Moderate 10/03/2009 Medications Active Medications SIG Qnty Indications Ordering Date Provider Tramadol HCL 1 tablet three 60tabs Nae [...] Caltrate 600+D Plus 1 po bid Unknown [id number] Tablets Medications Administered in Office Medication SIG [...] CPT Code Status Date Vaccine Lot # [id number] Given 12/10/2008 Tdap - Tetanus/Diptheria/Acellular Pertussis Vital Signs Date Vital Result Comment 12/18/2018 1:04pm Height 61.5 inches 5'1.50" Weight 153.00 lb Heart Rate 76 /min BP Systolic Sitting 160 mmHg Rue BP Diastolic Sitting 88 mmHg Rue BMI (Body Mass Index) 28.4 kg/m2 12/08/2018 12:39pm Height 61.25 inches 5'1.25" Weight 154.00 lb with shoes Heart Rate 66 /min BP Systolic Sitting 126 mmHg Lue reg cuff BP Diastolic Sitting 84 mmHg Lue reg cuff BP Systolic Standing 130 mmHg Lue reg cuff BP Diastolic Standing 82 mmHg Lue reg cuff Respiratory Rate 14 /min BMI (Body Mass Index) 28.9 kg/m2 Ejection Fraction 60-65% date 11/24/18 ECHO Results Test Acquired Date Facility Test Result H/L Range Note Inr/Protime 12/16/2018 [facility] Inr 1.01 Normal 0.82-1.09 [address] [place] [address] [phone] Laboratory test 12/16/2018 [facility] Partial 37.3 seconds Normal 26.0-38.[address] [place] [address] Time PTT [phone] Type & Screen 12/16/2018 [facility] Patient A Negative [place] [address] [phone] Antibody Screen NEGATIVE Nicotine/Cotinine Serum 12/11/2018 [facility] Nicotine <3.0 ng/ mL <3.0 [place] [address] [phone] Cotinine <3.0 ng/mL <3.0 2 Comp Metabolic 12/08/2018 [facility] Sodium 139 mmol/L Normal 135-145 Panel [address] [place] [address] [phone] Potassium 4.5 mmol/L Normal 3.5-5.0 Chloride 102 mmol/L Normal 101-111 Co2 Carbon Dioxide 30 mmol/L Normal 22-32 Anion Gap 7 mmol/L Normal 2-11 Glucose 88 mg/dL Normal 70-100 Blood Urea Nitrogen 17 mg/dL Normal 6-24 Creatinine 0.85 mg/dL Normal 0.51-0.95 BUN/Creatinine Ratio 20.0 Normal 8-20 Calcium 10.0 mg/dL Normal 8.6-10.3 Total Protein 7.3 g/dL Normal 6.4-8.9 Albumin 4.9 g/dL Normal 3.2-5.2 Globulin 2.4 g/dL Normal 2-4 Albumin/Globulin Ratio 2.0 Normal 1-3 Total Bilirubin 0.60 mg/dL Normal 0.2-1.0 Alkaline Phosphatase 74 U/L Normal 34-104 Alt 31 U/L Normal 7-52 Ast 27 U/L Normal 13-39 Egfr Non- 68.0 >60 Egfr 82.3 >60 3 CBC Auto 12/08/2018 [facility] White Blood 7.8 10^3/uL Normal 3.5-10.[address] [place] [address] [phone] Red Blood Count 4.55 10^6/uL Normal 3.70-4.87 Hemoglobin 14.3 g/dL Normal 12.0-16.0 Hematocrit 42 % Normal 35-47 Mean Corpuscular Volume 93 fL Normal 80-97 Mean Corpuscular Hemoglobin 31 pg Normal 27-31 Mean Corpuscular HGB Conc 34 g/dL Normal 31-36 Red Cell Distribution Width 13 % Normal 10-15 Platelet Count 189 10^3/uL Normal 150-450 Mean Platelet Volume 9.5 fL Normal 7.4-10.4 Abs Neutrophils 5.0 10^3/uL Normal 1.5-7.7 Abs Lymphocytes 1.8 10^3/uL Normal 1.0-4.8 Abs Monocytes 0.9 10^3/uL High 0-0.8 Abs Eosinophils 0.1 10^3/uL Normal 0-0.6 Abs Basophils 0.1 10^3/uL Normal 0-0.2 Abs Nucleated RBC 0.0 10^3/uL Granulocyte % 64.1 % Lymphocyte % 22.7 % Monocyte % 11.7 % Eosinophil % 0.7 % Basophil % 0.8 % Nucleated Red Blood Cells % 0.1 Urinalysis Profile 12/08/2018 [facility] Urine Color Yellow [address] [place] [address] [phone] Urine Appearance Clear Urine Specific [place] 1.014 Normal 1.010-1.030 Urine pH 7.0 Normal 5-9 Urine Urobilinogen Negative Negative Urine Ketones Negative Negative Urine Protein Negative Negative Urine Leukocytes Negative Negative Urine Blood Negative Negative Urine Nitrite Negative Negative Urine Bilirubin Negative Negative Urine Glucose Negative Negative Ua Routine 07/16/2018 [facility] Ua Specific [place] 1.015 Ua PH 5 Ua Color yellow Ua Appera clear Ua WBC neg Ua Protein neg Ua Glucose norm Ua Ketones neg Ua Bilirubin neg Ua Urobilinogen norm Ua Nitrite neg Ua Occult Blood neg Urinalysis Profile 07/16/2018 [facility] Urine Color Straw [address] [place] [address] [phone] Urine Appearance Cloudy Urine Specific [place] 1.008 Low 1.010-1.030 Urine pH 7.0 Normal 5-9 Urine Urobilinogen Negative Negative Urine Ketones Trace Abnormal Negative Urine Protein Negative Negative Urine Leukocytes Negative Negative Urine Blood Negative Negative Urine Nitrite Negative Negative Urine Bilirubin Negative Negative Urine Glucose Negative Negative Laboratory test 07/16/2018 [facility] C Reactive 2.09 mg/L Normal <8.[address] [place] [address] [phone] Comp Metabolic 07/16/2018 [facility] Sodium 138 Normal 135- [address] mmol/[place] [address] [phone] Potassium 4.0 mmol/L Normal 3.5-5.0 Chloride 103 [...] Egfr Non- 73.2 >60 Egfr 88.5 >60 4 CBC Auto 07/16/2018 [facility] White Blood 6.6 10^3/uL Normal 3.5-10.[address] [place] [address] [phone] Red Blood Count 4.61 10^6/uL Normal 3.70-4.87 [...] % Nucleated Red Blood Cells % 0.1 1 Standard intensity warfarin therapeutic range: 2.0-3.0 High intensity warfarin therapeutic range: 2.5-3.5 2 ADDITIONAL INFORMATION This test was developed and its performance characteristics determined by [facility] in a manner consistent with CLIA requirements. This test has not been cleared or approved by the U.S. Food and Drug Administration. Test Performed by: [facility] [address] [place] [address] Booster Pump Operator: Carter Velasquez M.D. Ph.D.; CLIA# [id number] 3 Because ethnic data is not always readily [...] 15-29 5 Kidney failure <15 (or dialysis) 4 Because ethnic data is not always readily [...] dialysis) Procedures Date Code Description Status 12/08/2018 95198 EKG Tracing & Interpretation Completed 11/24/2018 57755 ECHO Transthoracic, Real-Time 2D With Doppler And Completed Color Flow 11/24/2018 36364 ECHO Transthoracic, Real-Time 2D With Doppler And Completed Color Flow 11/17/2018 28862 Stress Test Completed 11/17/2018 75183 Myocardial Perfusion Imaging Tomographic (Spect) Completed Multiple Studies 09/23/2018 43290 Nerve Conduction 05-06 Studies Completed 09/23/2018 27503 Needle Electromyography Complete, Five Or More Muscles Completed Studied 02/07/2018 [id number] Mammogram Completed 01/29/2017 [id number] Mammogram Completed 01/25/2016 [id number] Mammogram Completed 05/31/2015 [id number] Bone Mineral Density Test Completed 01/17/2015 [id number] Mammogram Completed 07/09/2014 [id number] Mammogram Completed 01/08/2014 [id number] Mammogram Completed 08/09/2011 [id number] Bone Mineral Density Test Completed 08/08/2011 [id number] Mammogram Completed 08/08/2011 [id number] Bone Mineral Density Test Completed 01/05/2010 [id number] Mammogram Completed 06/23/2009 [id number] Mammogram Completed 01/04/2009 [id number] Colonoscopy Completed 12/24/2008 [id number] Mammogram Completed Medical Devices Description No Information Available Encounters Type Date Location Provider Dx Diagnosis Office Visit 12/08/2018 [facility] William Tong Z01.810 Encounter for 1:15p Of Gogo Lombardo M.D., preprocedural FAC, [facility] cardiovascular examination M51.36 Other intervertebral disc degeneration, lumbar region I77.810 Thoracic aortic ectasia Z95.2 Presence of prosthetic heart valve R94.31 Abnormal electrocardiogram [ECG] [EKG] Office Visit 12/08/2018 11:00a [facility] Internal Nae Wesley Z01.818 Encounter for other Medicine - N.P. preprocedural [facility] examination M54.16 Radiculopathy, lumbar region Z95.2 Presence of prosthetic heart valve I77.810 Thoracic aortic ectasia G47.33 Obstructive sleep apnea (adult) (pediatric) Office Visit 09/25/2018 [facility] M54.16 Radiculopathy, 2:00p Services Of BENIGNO Mulligan lumbar region Office Visit 09/03/2018 [facility] M54.16 Radiculopathy, 11:30a Services Of BENIGNO Mulligan lumbar region M79.605 Pain in left leg Office Visit 07/16/2018 10:20a [facility] Internal Gladys Butcher MD M54.5 Low back pain Medicine - [facility] M54.16 Radiculopathy, lumbar region R39.11 Hesitancy of micturition Assessments Date Code Description Provider 12/08/2018 Z01.810 Encounter for preprocedural William Lombardo M.D., FACC, cardiovascular examination FASWV 12/08/2018 M51.36 Other intervertebral disc William Lombardo M.D., FACC, degeneration, lumbar region FASNC 12/08/2018 I77.810 Thoracic aortic ectasia William Lombardo M.D., FACC, [facility] 12/08/2018 Z95.2 Presence of prosthetic heart valve William Lombardo M.D., FACC, [facility]AS[facility] 12/08/2018 Z01.818 Encounter for other preprocedural Nae Wesley, N.P. examination 12/08/2018 R94.31 Abnormal electrocardiogram [ECG] William Lombardo M.D., FAC, [EKG] FASWV 12/08/2018 M54.16 Radiculopathy, lumbar region Nae Wesley, N.P. 12/08/2018 Z95.2 Presence of prosthetic heart valve Nae Varn, N.P. 12/08/2018 I77.810 Thoracic aortic ectasia Nae Wesley, N.P. 12/08/2018 G47.33 Obstructive sleep apnea (adult) Nae Wesley, N.P. (pediatric) 11/24/2018 Z95.2 Presence of prosthetic heart valve William Lombardo M.D., [facility], [facility] 11/24/2018 Z95.2 Presence of prosthetic heart valve Ica ECHO Schedule 11/24/2018 I77.810 Thoracic aortic ectasia William Lombardo M.D., FAC, [facility] 11/24/2018 I77.810 Thoracic aortic ectasia Ica ECHO Schedule 11/17/2018 R94.31 Abnormal electrocardiogram [ECG] William Lombardo M.D., FAC, [EKG] [facility] 11/06/2018 M54.16 Radiculopathy, lumbar region Jensen Russell [...] Boyle 09/03/2018 M79.605 Pain in left leg BENIGNO Boyle 07/16/2018 M54.5 Low back pain Gladys Butcher MD 07/16/2018 M54.16 Radiculopathy, lumbar region Gladys Butcher MD 07/16/2018 R39.11 Hesitancy of micturition Gladys Butcher MD Plan of Treatment Future Appointment(s):03/30/2019 1:00 pm - BENIGNO Boyle at [facility]01/28/2019 11:30 am - BENIGNO Boyle at [facility]12/31/2018 9:30 am - BENIGNO Boyle at [facility]06/2018 7:30 am - BENIGNO Boyle at [facility]12/23/2018 7:30 am - Jensen Russell MD at [facility] Functional Status Description No Information Available Mental Status Description No Information Available Referrals Refer to Dr Reason for Referral Status Appt Date Deepak Vega MD Created [address] [place] [address] [phone] Jensen Russell MD Patient with persistent back pain. Referred Sent 09/03/2018 for evaluation. [address] [facility], [place] [address] [phone]
--- OUTSIDE RECORDS SUMMARY | 2018-12-23 05:42 | XMS REPORT | Continuity of Care Document ---
:1955 External Reference #:[id number] Author Name Nae Wesley N.P. (transmitted by agent of provider Bethany Reyes) Address [address] [facility] [address], [place] [address] Problems Active Problems Provider Date Aortic valve disorder Nae Wesley, N.P. Onset: 2011 Osteochondropathy Nae Wesley, N.P. Onset: 2011 Tobacco user Nae Wesley N.P. Onset: 2011 Anxiety state Nae Wesley N.P. Onset: 2011 Disturbance in sleep behavior Amalia Lynne MD Onset: 06/02/2014 Malaise and fatigue Amalia Lynne MD Onset: 06/02/2014 Obstructive sleep apnea syndrome Amalia Lynne MD Onset: 07/05/2014 Lumbosacral radiculopathy Faviola Ibanez M.D. Onset: 12/07/2016 Note: left L5/S1 Dyspnea William Lombardo M.D., [facility] Onset: 01/29/2017 Thoracic aortic ectasia William Lombardo M.D., [facility], [place] Onset: 01/29/2017 Heart valve replacement Willaim Lombardo M.D., [facility], [place] Onset: 12/08/2018 Social History Type [...] Caltrate 600+D Plus 1 po bid Unknown [id number] Tablets Ibuprofen 200 2 every 6 hours as Unknown 200mg needed for pain. Tablets Medications Administered in Office Medication SIG Qnty Indications Ordering Provider Date Inj, Regadenoson, 0.1 MG William Lombardo M.D., 11/17/2018 Injection FACC, FASNC Aminophylline William Lombardo M.D., 11/17/2018 Injection FACC, FASNC Technetium TC 99M William Lombardo M.D., 11/17/2018 Tetrofosmin, Per Unit Dose Up [facility], [facility] To 40 Millicuries Injection Technetium TC 99M William Lombardo M.D., 11/17/2018 Tetrofosmin, Per Unit Dose Up FACC, [place] To 40 Millicuries Injection Technetium TC 99M William Lombardo M.D., 01/21/2017 Tetrofosmin, Per Unit Dose Up FACC, FASNC To 40 Millicuries Injection Technetium TC 99M Clyde Quiroga M.D. 01/21/2015 Tetrofosmin, Per Unit Dose Up To 40 Millicuries Injection Technetium TC 99M BENIGNO Hamm 01/21/2015 Tetrofosmin, Per Unit Dose Up To 40 Millicuries Injection Immunizations CPT Code Status Date Vaccine Lot # [id number] Given 12/10/2008 Tdap - Tetanus/Diptheria/Acellular Pertussis Vital [...] Result H/L Range Note CBC Auto 07/16/2018 [facility] White Blood 6.6 10^3/uL Normal 3.5-10.[address] [place] [address] [phone] Red Blood Count 4.61 10^6/uL Normal 3.70-4.87 [...] Blood Cells % 0.1 Comp Metabolic 07/16/2018 [facility] Sodium 138 mmol/L Normal 135-145 Panel [address] [place] [address] [phone] Potassium 4.0 mmol/L Normal 3.5-5.0 Chloride 103 [...] Egfr 88.5 >60 1 Laboratory test 07/16/2018 [facility] C Reactive 2.09 mg/L Normal <8.01 finding [address] [facility] [place] [address] [phone] Urinalysis 07/16/2018 [facility] Urine Color Straw Profile [address] [place] [address] [phone] Urine Appearance Cloudy Urine Specific [place] 1.008 Low 1.010-1.030 Urine pH 7.0 Normal 5-9 Urine Urobilinogen Negative Negative Urine Ketones Trace Abnormal Negative Urine Protein Negative Negative Urine Leukocytes Negative Negative Urine Blood Negative Negative Urine Nitrite Negative Negative Urine Bilirubin Negative Negative Urine Glucose Negative Negative Ua Routine 07/16/2018 [facility] Ua Specific [place] 1.015 Ua PH 5 Ua Color yellow Ua Appera clear Ua WBC neg Ua Protein neg Ua Glucose norm Ua Ketones neg Ua Bilirubin neg Ua Urobilinogen norm Ua Nitrite neg Ua Occult Blood neg Basic Metabolic 06/16/2018 [facility] Sodium 138 mmol/L Normal 135-[address] [place] [address] [phone] Potassium 4.8 mmol/L Normal 3.5-5.0 Chloride 103 [...] dialysis) Procedures Date Code Description Status 12/08/2018 63250 EKG Tracing & Interpretation Completed 11/24/2018 83489 ECHO Transthoracic, Real-Time 2D With Doppler And Completed Color Flow 11/17/2018 18579 Stress Test Completed 11/17/2018 33220 Myocardial Perfusion Imaging Tomographic (Spect) Completed Multiple Studies 09/23/2018 50170 Nerve Conduction 05-06 Studies Completed 09/23/2018 62014 Needle Electromyography Complete, Five Or More Muscles Completed Studied 02/07/2018 [id number] Mammogram Completed 01/29/2017 [id number] Mammogram Completed 01/25/2016 [id number] Mammogram Completed 05/31/2015 [id number] Bone Mineral Density Test Completed 01/17/2015 [id number] Mammogram Completed 07/09/2014 [id number] Mammogram Completed 01/08/2014 [id number] Mammogram Completed 08/09/2011 [id number] Bone Mineral Density Test Completed 08/08/2011 [id number] Mammogram Completed 08/08/2011 [id number] Bone Mineral Density Test Completed 01/05/2010 [id number] Mammogram Completed 06/23/2009 [id number] Mammogram Completed 01/04/2009 [id number] Colonoscopy Completed 12/24/2008 [id number] Mammogram Completed Medical Devices Description No Information Available Encounters Type Date Location Provider Dx Diagnosis Office Visit 12/08/2018 [facility] William Ran Z95.2 Presence of 1:15p Of Gogo Lombardo M.D., prosthetic heart FACC, FASNC valve I77.810 Thoracic aortic ectasia Office Visit 09/25/2018 [facility] M54.16 Radiculopathy, 2:00p Services Of BENIGNO Mulligan lumbar region Office Visit 09/03/2018 [facility] M54.16 Radiculopathy, 11:30a Services [facility] BENIGNO Mulligan lumbar region M79.605 Pain in left leg Office Visit 07/16/2018 10:20a [facility] Antoinette Butcher MD M54.5 [facility]16 Radiculopathy, lumbar region R39.11 Hesitancy of micturition Office Visit 06/16/2018 1:40p [facility] Internal Vamshi Wilson79.605 Pain in left Medicine - [facility] N.P. leg Assessments Date Code Description Provider 12/08/2018 Z95.2 Presence of prosthetic heart valve William Lombardo M.D., [facility], [facility] 12/08/2018 Z01.818 Encounter for other preprocedural Nae Odelln, N.P. examination 12/08/2018 I77.810 Thoracic aortic ectasia William Lombardo M.D., [facility], [facility] 12/08/2018 M54.16 Radiculopathy, lumbar region Nae Varn, [...] R94.31 Abnormal electrocardiogram [ECG] William Lombardo M.D., [facility], [EKG] [facility] 11/06/2018 M54.16 Radiculopathy, lumbar region Jensen Russell MD 11/06/2018 M43.16 Spondylolisthesis, lumbar region Jensen Russell MD 11/06/2018 M51.36 Other intervertebral disc Jensen Russell MD degeneration, lumbar region 11/03/2018 M54.16 Radiculopathy, lumbar region Jensen Russell MD 11/03/2018 M43.16 Spondylolisthejuanjose, lumbar region Jensen Russell MD 11/03/2018 M51.36 [...] M79.605 Pain in left leg Nae Wesley N.PTrinh Plan of Treatment Future Appointment(s):12/23/2018 7:30 am - BENIGNO Boyle at [facility]12/23/2018 7:30 am - Jensen Russell MD at [facility]12/18/2018 1:00 pm - BENIGNO Boyle at [facility]12/08/2018 - William Lombardo M.D., [facility], YOEKRT74.2 Presence of prosthetic heart wurvfC65.810 Thoracic aortic ectasiaNew Orders:Echocardiogram, Ordered: 12/08/18Comments:As discussed, your heart testing appears stable. I feel you may have needed back surgery as scheduled. Please avoid lifting more than 30 lbs, and avoid Ibuprofen, can try Tylenol as needed for pain relief.Follow up:one year after echo Functional Status Description No Information Available Mental Status Description No Information Available Referrals Refer to Dr Reason for Referral Status Appt Date Deepak Vega MD Created [address] [place] [address] [phone] Jensen Russell MD Patient with persistent back pain. Referred Sent 09/03/2018 for evaluation. [address] [facility], [place] [address] [phone]
[2018-12-23] MEDS ORDERED: Famotidine IV* 10 MG/ML 2 ML (20 mg) ONE (06:00)
[2018-12-23] MEDS ORDERED: Famotidine IV* 10 MG/ML 2 ML (20 mg) IV ONE (06:00)
[2018-12-23] MEDS ORDERED: Bupivacaine 0.25% W/EPI* 10 ML SDV ONE (06:43)
[2018-12-23] MEDS: Lactated Ringers 1000 ML Bag* 1,000 ML IV SCH ×2 (06:44→14:19)
[2018-12-23] MEDS ORDERED: Bacitracin INJECTION* 50,000 UNITS ONE ×2 (06:44→13:19)
[2018-12-23] MEDS ORDERED: KETAMINE HCL* 50 MG/ML 10 ML VIAL ONE (07:13)
[2018-12-23] MEDS ORDERED: Propofol* 500 MG/50 ML BTL ONE ×2 (07:13→09:45)
[2018-12-23] MEDS ORDERED: fentaNYL* 50 MCG/ML 2 ML VIAL (100 MCG VIAL) ONE (07:13)
[2018-12-23] MEDS ORDERED: Midazolam* 1 MG/ML 10 ML VIAL (10 MG) ONE (07:13)
[2018-12-23] MEDS ORDERED: Sodium Chloride 0.9%* 10 ML ONE (07:13)
[2018-12-23] MEDS ORDERED: Cisatracurium* 2 MG/ML MDV 5 ML ONE (07:13)
[2018-12-23] MEDS ORDERED: Ondansetron INJ* 2 MG/ML VIAL ONE (07:13)
[2018-12-23] MEDS ORDERED: Dexamethasone IV* 4 MG/ML 1 ML (4 MG) ONE (07:13)
[2018-12-23] MEDS ORDERED: Lidocaine 2% PF * 5 ML VIAL ONE ×2 (07:13→07:15)
[2018-12-23] MEDS ORDERED: Phenylephrine 10 MG/ML VIAL* 1 ML VIAL ONE (07:13)
[2018-12-23] MEDS ORDERED: Propofol* 10 MG/ML 20 ML BTL ONE ×2 (07:13→11:53)
[2018-12-23] MEDS ORDERED: Remifentanil* 2 MG VIAL ONE ×3 (07:14→11:53)
[2018-12-23] MEDS ORDERED: Artificial Tear OPHTH.OINT* 3.5 GM ONE (07:21)
[2018-12-23] MEDS ORDERED: Bupivacaine 0.25% SDV PF* 10 ML VIAL INJ ONE (07:25)
[2018-12-23] MEDS ORDERED: EPHEDrine (Pressors)* 50 MG/ML VIAL ONE (08:49)
[2018-12-23] MEDS ORDERED: HYDROmorphone INJ1* 1 MG/ML SYRINGE ONE ×2 (13:15→14:14)
[2018-12-23] MEDS ORDERED: Ondansetron INJ* 2 MG/ML VIAL IV PRN (13:17)
[2018-12-23] MEDS ORDERED: Naloxone* 0.4 MG/ML 1 ML VIAL IV PRN (13:17)
[2018-12-23] MEDS ORDERED: fentaNYL* 50 MCG/ML 2 ML VIAL (100 MCG VIAL) IV PRN (13:17)
[2018-12-23] MEDS ORDERED: Lactated Ringers 1000 ML Bag* 1,000 ML IV SCH (14:00)
[2018-12-23] MEDS: HYDROmorphone INJ1* 1 MG/ML SYRINGE IV PRN ×2 (14:17→14:27)
[2018-12-23] MEDS: HYDROcodone/ACETAMIN 5-325 MG* 1 TAB PO PRN ×2 (16:45→21:39)
--- NOTE | 2018-12-23 19:26 | CONS ---
CONSULTATION REPORT: DATE OF CONSULT: 12/23/18 REQUESTING PROVIDER: Dr. Russell. REASON FOR CONSULT: General co-medical management. HISTORY OF PRESENT ILLNESS: This is a 63-year-old female with a past medical history significant for aortic stenosis with valve replacement, anxiety, osteopenia, and sleep apnea, who was admitted on , status post an L4-5, L5 to S1, TLIF and PEEK cage after failing conservative outpatient thera py. Hospital Medicine was consulted for general co-medical management. The patient was seen in her room on short stay, was able to ambulate to the bathroom and back with assist. Pain to her lower back and down her left leg, she stated was manageable. Denied any chest pain, shortness of breath, abdom inal pain, nausea, vomiting or issues with moving her bowels or bladder. She did report baseline num bness and cramping to her left kong and foot. PAST MEDICAL HISTORY: 1. Aortic stenosis. 2. Anxiety. 3. Osteopenia. 4. Sleep apnea. 5. Hyperlipidemia. PAST SURGICAL HISTORY: 1. Lumpectomy of right middle finger on 2013. 2. Spinal decompression in 2012 and 2016. 3. Tonsillectomy and adenoids as a child. 4. Myringotomy with tubes as a child. 5. 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 6. L4-5 diskectomy in 2014. MEDICATIONS: 1. Simvastatin 10 mg p.o. at bedtime. 2. Sertraline 50 mg p.o. q.a.m. 3. Calcium carbonate/vitamin D 600 mg p.o. b.i.d. ALLERGIES: To PENICILLIN. FAMILY HISTORY: Significant for hypertension and coronary artery disease, AAA, AFib, thyroid, breast , and uterine cancer and dementia. SOCIAL HISTORY: The patient is , lives at home with her drinks 4 to 5 beers on the we ekend. Quit smoking in October,, had been a pack a day since she was 15 years old. De nies any recreational substance use. REVIEW OF SYSTEMS: An 11-point system review was performed, which was positive for left kong and manuel t numbness and tingling and pain to the lower back. Otherwise negative for chest pain, shortness of breath, abdominal pain, nausea, vomiting. PHYSICAL EXAM: Vital Signs: 97.8 Fahrenheit, 72 pulse, 16 resps, 95% on room air, and 126/76 blood pressure. General: This is a well-developed woman seen resting in bed in no acute distress. Eyes: Conjunctivae pink and moist. PERRLA, EOMs intact. ENT: Oropharynx clear. Mucous membranes moist. Neck is supple. Cardiac: S1, S2 present. Heart rate regular. No murmurs, gallops, or rubs appreci ated. Respiratory: Lung sounds clear throughout bilaterally on room air. Abdomen: Soft, very disten ded per her, nontender. Positive bowel sounds x4. Musculoskeletal: Strength 5/5 in the bilateral up per and lower extremities. No clubbing nor cyanosis appreciated. Skin: Intact except for dressing to the lower back, which is clean, dry, and intact. Neurological: Sensation impaired to left lower extremity. Otherwise, intact. No focal deficits appreciated. Psych: Alert and oriented x4. [facility] content organized. DIAGNOSTIC STUDIES/LAB DATA: None for this visit. PLAN: 1. Lumbar TLIF, PEEK cage. Pain management as per Neurosurgery with neuro checks q.4. May be out o f bed as tolerated. Physical therapy ordered. 2. Anxiety. No evidence of anxiety during evaluation. May continue home sertraline. 3. Hyperlipidemia. May continue home simvastatin. 4. Aortic stenosis with bovine and porcelain valve replacement. No longer has a murmur. The patien t does require premedication with antibiotics prior to any invasive procedures, had received vancomyc in prior to surgery today. 5. Sleep apnea. The patient may use home CPAP. We will do continuous pulse ox monitoring during e overnight tonight and may discontinue in the morning. 6. DVT prophylaxis. SCDs as per Dr. Seun justice. 7. Code status is full code. Thank you for allowing us to participate in the care of this patient. We will follow during this adm ission. [id number]/[facility] #: [id number]
--- NOTE | 2018-12-24 03:45 | OP ---
DATE OF OPERATION: 12/23/18 - ROOM #333 DATE OF : 59 SURGEON: Jensen Russell MD HAT BLOCKER: laxmi Boyle. The case was done with the assistance of surgical PA because of the complexity of the case. ANESTHESIA: General. PRE-OP DIAGNOSES: Degenerative disk disease and spondylolisthesis. POST-OP DIAGNOSES: Degenerative disk disease and spondylolisthesis. OPERATIVE PROCEDURE: The patient underwent left L4-5 MIS-TLIF with re- exploration of the disk space, lysis of adhesions, iliac crest bone graft DBX, and pedicle screws with intraoperative navigation and monitoring. INDICATIONS: The patient is a very pleasant 63-year-old female who has a history of previous left L4-5 and L5-S1 diskectomies. She presented with L4-5 grade 1 spondylolisthesis and severe back pain radiating to the left lower extremity. After failing conservative modalities, she was offered the option of surgical intervention after explaining the expectations in the form of left L4- 5 MIS-TLIF and possible L5-S1. After explaining in detail to the patient and her family including her , the expectations, limitations, indications, and possible complications of the procedure with complications including but not limited to bleeding, infection, risk of injury to adjacent structures, coma , paralysis, , need for additional procedures, anesthesia risks, stroke, blindness, cancer, instability, hardware failure, adjacent level disease, pseudoarthrosis, spinal fluid leak, need for additional procedures, postoperative hematoma, fractures, subsidence, deep venous thrombosis, pulmonary embolism, need for prolonged ICU stay, prolonged hospitalization, and prolonged rehabilitation, the patient was agreeable to proceed with surgery and informed consent was obtained. ESTIMATED BLOOD LOSS: 30 cc. COMPLICATIONS: None. DESCRIPTION OF PROCEDURE: The patient was brought to the operating room, was placed under general anesthesia by the anesthesia team. She was carefully positioned prone on the Guero table and all bony prominences were meticulously padded. Her skin was prepped and draped in a standard fashion. After appropriate surgical pause and patient identification, a small incision was marked on the skin over the right PSIS. The skin incision was infiltrated with local anesthetic and #10 surgical blade was used to incise the skin with the assistance of Jamshidi needle, a Corex needle was inserted, and bone graft was obtained for use for the arthrodesis part of the procedure. The patient also through the same incision had insertion of navigation star pin, it was then secured in place. Intraoperative O-arm imaging was obtained and the patient then was transferred to navigation platform with retention of navigation at trajectories of L4 and L5 were marked in the skin and 2 incisions were marked on the skin over the entry points of pedicle screws. After the skin was infiltrated with local anesthetic and #10 surgical blade was used to incise the skin. The incision was carried down with Bovie cautery. Entry points were made with high-speed drill under stereotactic navigation and the pedicles were cannulated and Medtronic awl-tip tap Voyager screws were inserted at the pedicles of L4 and L5 bilaterally. Then, through the same incision, the PitadelaRx tubular retractor was inserted from the left side and was docked over the left L4-5 facet with use of intraoperative navigation. Intraoperative microscope was brought into the field and after exposing remaining of the lamina and part of the facet was left from the previous surgical intervention. The pars defect was identified on left side as expected from the preoperative surgical imaging. High-speed drill was used to perform a medial facetectomy as well as extended laminectomy and removed the remaining of the facet on the left L4-5. A significant amount of scar tissue was encountered as expected from the previous surgical intervention. The medial edge of the bone were dissected free with use of curettes and high-speed drill and Kerrison punches were used to perform an extended laminotomy and contralateral laminectomy in order to achieve adequate decompression. The thecal sac was identified and a significant amount of scar tissue was then identified, extended towards the left L4-5 foramen covering all the foramen and attached peripherally onto the thecal sac. The left pedicle of L4 was skeletonized with the use of high-speed drill and Kerrison punches and an extended foraminotomy at L5 nerve root was performed. Then, meticulous lysis of adhesions was performed in order to free up the middle portions of the thecal sac and mobilize it medially while protecting the area of L4 nerve root. A handheld retractor was used to gently mobilize it towards the midline and diskectomy was performed after incising the annulus fibrosus with the #11 surgical blade. The diskectomy and disk space preparation was performed with the use of pituitary rongeurs, dilators, curettes , and Kerrisons. Stereotactic navigation was used for all parts of the disk preparation. Then, attention was brought to place bone graft into the disk space, which was comprised from the locally harvested bone graft from the laminectomy part of the procedure, DBX, and iliac crest bone graft. After the bone graft was packed into the disk space, a 9-mm Elevate Expandable Medtronic cage was then inserted after being filled with a mixture of bone graft material. The Elevate cage was then gently expanded and after removal of the crime prevention police officer, meticulous hemostasis was confirmed and after copious irrigation and confirmation of meticulous hemostasis as well as meticulous inspection, the tubular retractor was gently removed after Valsalva maneuver did not show any signs of CSF leak or any epidural bleeding. The dorsal fascial defect was approximated with 0 interrupted Vicryl sutures and then attention was brought to insert two cobalt-chrome rods through the same incisions. After securing the rods in place, a second O-arm imaging was obtained confirming the excellent placement of all hardware. The screws were finally tightened. Of note, significant elevation of the disk space was achieved as well as almost yazidi of the anatomic alignment at L4-5. Then, after removal of the extension towers and after confirmation of meticulous hemostasis and copious irrigation and meticulous inspection, the wounds were closed by layers with 0 interrupted Vicryl sutures to approximate the dorsal fascial defect and 2-0 interrupted Vicryl suture to approximate the subcutaneous tissue. The skin was then covered with Dermabond and sterile dressings. At the end of the procedure, all counts were reported to be correct. The patient remained hemodynamically stable throughout the case and intraoperative electrophysiological monitoring remained stable throughout the case. The patient was then turned supine, was extubated and was transferred to the Recovery in excellent condition. The case was done with the assistance of surgical PA because of the complexity of the case. [id number]/[facility] #: [id number] CORNELIO
[2018-12-24] MEDS: HYDROcodone/ACETAMIN 5-325 MG* 1 TAB PO PRN ×3 (04:11→14:37)
[2018-12-24] MEDS ORDERED: Cyclobenzaprine TAB* 10 MG PO PRN (08:29)
[2018-12-24] MEDS ORDERED: Influenza VAC *QUAD* 2019-20* 0.5 ML SYRINGE IM ONE (09:00)
--- NOTE | 2018-12-24 09:50 | PN ---
Progress Note - Progress Note Date of Service: 12/24/18 SOAP: Subjective: [] 63 y/o female post left L4/L5 TLIF POD # 1, patient is doing well after surgery. She has been able to ambulate with minimal assistance. Her pain has been well controlled with medication, her average pain scale is 4-6 /10 and in improved to 2 -4 /10 with medication. She feels that sensation in her left foot is starting improve after surgery. Patient has been able to eat and drink, has been using the restroom. She has not had a BM, but has passed flatulence. Her vitals have been stable overnight and did not have any acute issues. Objective: [] Initial Vitals Temp Pulse Resp BP Pulse Ox 96.6 F 65 18 127/82 97 12/16/18 10:46 12/16/18 10:46 12/16/18 10:46 12/16/18 10:46 12/16/18 10:46 General: Patient sitting up in bed NAD Neuro: A&O x 3 CN II - XII grossly intact without impairment, UPE motor strength intact 5/5 throughout. Lower extremity motor strength 5/5 with hip flexion/extension, leg flexion extension, EHL 5/5. Sensation in left foot slightly altered compared to right with dull sensation. Wound: C/D/I Assessment: [] Patient is s/p left L4/L5 TLIF POD # 1 has been doing well, is able to ambulate with one assist, pain well controlled. Plan: []1) Use IS 2) Follow up L spine X ray 3) Walk with PT 4) start Cyclobenzprine 5) discharge planning.
[2018-12-24] MEDS ORDERED: Sertraline* 50 MG TAB PO SCH (10:30)
[2018-12-24 11:25] VITALS: BP 97/58
--- NOTE | 2018-12-24 13:19 | PN ---
Subjective Date of Service: 12/24/18 Interval History: Ms. Quigley is feeling well today. Pain is present, but well managed with pain medications. She has been up ambulating independently. Hoping to go home today. Denies CP or SOB. No concerns from nursing. Family History: Unchanged from Admission Social History: Unchanged from Admission Past Medical History: Unchanged from Admission Objective Active Medications: Hydrocodone Bitart/Acetaminophen (Conley 5-325 Tab*) 2 tab PO Q4H PRN PAIN - MODERATE Cyclobenzaprine HCl (Flexeril Tab*) 10 mg PO TID PRN SPASMS - MUSCLE Lactated Ringer's (Lactated Ringers 1000 Ml Bag*) 1,000 mls @ 75 mls/hr IV .per rate THIERNO Sertraline HCl (Zoloft*) 50 mg PO QAM THIERNO Simvastatin (Zocor(Nf)) 10 mg PO BEDTIME THIERNO Vital Signs - 8 hr 12/24/18 12/24/18 12/24/18 06:00 06:57 08:00 Temperature Pulse Rate Respiratory 16 18 Rate Blood Pressure (mmHg) O2 Sat by Pulse 97 100 Oximetry 12/24/18 12/24/18 12/24/18 08:28 09:04 10:25 Temperature 98.4 F Pulse Rate 64 Respiratory 16 18 16 Rate Blood Pressure 110/66 (mmHg) O2 Sat by Pulse 100 Oximetry 12/24/18 11:24 Temperature 98.1 F Pulse Rate 70 Respiratory 16 Rate Blood Pressure 97/58 (mmHg) O2 Sat by Pulse 95 Oximetry Oxygen Devices in Use Now: None Appearance: Middle-aged female sitting in chair in NAD Ears/Nose/Mouth/Throat: Mucous Membranes Moist Neck: NL Appearance and Movements; NL JVP, Trachea Midline Respiratory: Symmetrical Chest Expansion and Respiratory Effort, Clear to Auscultation Cardiovascular: NL Sounds; No Murmurs; No JVD, RRR Abdominal: NL Sounds; No Tenderness; No Distention Extremities: No Edema Skin: - - Surgical dressing intact to lumbar spine Neurological: Alert and Oriented x 3 Lines/Tubes/Other Access: Clean, Dry and Intact Peripheral IV Nutrition: Taking PO's Assess/Plan/Problems-Billing Assessment: Ms. Quigley is a 63 yo F with PMH of s/p bovine/porcine replacement, anxiety, FRANCOISE, osteopenia, HLD; who presented to [facility] for elective neurosurgery, now s/p L4 -5, L5-S1 TLIF and PEEK cage. Hospital Medicine is consulting for co-medical management. - Patient Problems (1) S/P lumbar fusion Code(s): Z98.1 - ARTHRODESIS STATUS Comment: - POD #1 L4-5, L5-S1 TLIF and PEEK cage with Dr. Russell - Management per Neurosurgery (2) S/P aortic valve replacement Code(s): Z95.2 - PRESENCE OF PROSTHETIC HEART VALVE Comment: - Porcine/bovine replacement in 2012 - Needs premedication prior to invasive procedures; received vanco x1 preop (3) HLD (hyperlipidemia) Code(s): E78.5 - HYPERLIPIDEMIA, UNSPECIFIED Comment: - Continue simvastatin (4) Anxiety Code(s): F41.9 - ANXIETY DISORDER, UNSPECIFIED Comment: - Continue sertraline (5) FRANCOISE (obstructive sleep apnea) Code(s): G47.33 - OBSTRUCTIVE SLEEP APNEA (ADULT) (PEDIATRIC) Comment: - CPAP (6) DVT prophylaxis Code(s): Z29.9 - ENCOUNTER FOR PROPHYLACTIC MEASURES, UNSPECIFIED Comment: - SCDs (7) Full code status Code(s): Z78.9 - OTHER SPECIFIED HEALTH STATUS Comment: Status and Disposition: Dispo per Neurosurgery. Patient is stable for d/c from a Hospital Medicine standpoint. Thank you for this consultation. We will continue to follow if she is not discharged today. Attending: Marbella Quiros
[2018-12-24] MEDS ORDERED: CMC: Simvastatin TAB(NF) 10 MG TAB PO SCH (21:00)
--- NOTE | 2018-12-30 13:24 | DS ---
DICTATION ENDS ABRUPTLY DISCHARGE SUMMARY: DATE OF ADMISSION: 12/23/18 DATE OF DISCHARGE: 12/24/18 ATTENDING PHYSICIAN: Dr. Russell.* (DCTATED BY BENIGNO CHAMPION) DIAGNOSIS ON ADMISSION: Cervical stenosis. DIAGNOSIS ON DISCHARGE: Cervical spinal stenosis. DISPOSITION ON DISCHARGE: Good. PLACE OF DISCHARGE: Home. DICTATION ENDS ABRUPTLY BENIGNO CHAMPION [id number]/[facility] #: [id number] MTDD
--- NOTE | 2019-01-02 00:54 | DS ---
DISCHARGE SUMMARY: DATE OF ADMISSION: 12/23/18 DATE OF DISCHARGE: 12/24/18 ATTENDING PHYSICIAN: Dr. Russell.* (DICTATED BY BENIGNO CHAMPION) DISPOSITION ON DISCHARGE: Good. PLACE OF DISCHARGE: Home. PREOPERATIVE DIAGNOSIS: Degenerative disk disease with spondylolisthesis. DIAGNOSIS ON DISCHARGE: Degenerative disk disease with spondylolisthesis. HOSPITAL COURSE: This patient is a very pleasant 63-year-old female with a history of previous left L4-L5 and L5-S1 diskectomies. She presented with L4 grade 1 spondylolisthesis and severe back pain radiating along the left lower extremity. After failing conservative modalities, she was offered the option of surgical intervention in the form of left L4-L5 MIS TLIF. After explaining the risks and procedures to the patient, she was consented for surgery. She tolerated the surgery well. After the surgery, went to PACU and following that was placed in short-stay surgical unit for brief observation. The patient did well. She was able to ambulate with minimal assistance. Also her pain was well controlled. The following day, the patient was doing well, was recommended for discharge. Upon discharge, she was given instructions as well as an appointment for followup for wound check and was discharged home with pain medications. Thank you for allowing me to be a part in this patient's care. BENIGNO CHAMPION [id number]/[facility] #: [id number] MTDD
== END 2018-12-24 14:45 | disposition home or self-care (01) | DRG 304 ==
LOC: AA 05:40 → INTOOBSV 05:40 → SSU 11:05 → OBSVTOIN 14:01
PROVIDERS: ADMIT Neurological Surgery; ATTEND Neurological Surgery
PROC: 00NY3ZZ Release Lumbar Spinal Cord, Percutaneous Approach (ICD-10-PCS; 2018-12-23)
PROC: 0QB23ZZ Excision of Right Pelvic Bone, Percutaneous Approach (ICD-10-PCS; 2018-12-23)
PROC: 4A11X4G Monitoring of Peripheral Nervous Electrical Activity, Intraoperative, External Approach (ICD-10-PCS; 2018-12-23)
PROC: 8E0WXBZ Computer Assisted Procedure of Trunk Region (ICD-10-PCS; 2018-12-23)
PROC: 0SG03AJ Fusion of Lumbar Vertebral Joint with Interbody Fusion Device, Posterior Approach, Anterior Column, Percutaneous Approach (ICD-10-PCS; principal; 2018-12-23 07:30)
DX: M51.16 Intervertebral disc disorders with radiculopathy, lumbar region (principal); F41.9 Anxiety disorder, unspecified; M85.80 Other specified disorders of bone density and structure, unspecified site; E78.5 Hyperlipidemia, unspecified; G47.33 Obstructive sleep apnea (adult) (pediatric); I27.20 Pulmonary hypertension, unspecified; M43.16 Spondylolisthesis, lumbar region; I77.810 Thoracic aortic ectasia; M51.17 Intervertebral disc disorders with radiculopathy, lumbosacral region; F17.200 Nicotine dependence, unspecified, uncomplicated; Z95.3 Presence of xenogenic heart valve; Z88.0 Allergy status to penicillin; Z72.89 Other problems related to lifestyle; Z23 Encounter for immunization
CPT/HCPCS: 72100; 76000; 90686; A9270-GY; C1713; C9359; G8978-GP-CH; G8979-GP-CH; G8980-GP-CH; J1100; J1170; J2250; J2405; J2704; J3010; J3370; J3490